=== PATIENT | female | born 1950 | race Caucasian/White ===

== ENCOUNTER 2016-10-27 01:55 | Emergency (ER) | payer MEDICARE, BC ==
[2016-10-27] MEDS ORDERED: SODIUM CHLORIDE 0.9% 1,000 ML IV ONE (02:19)
--- NOTE | 2016-10-27 02:46 | ED ---
General Adult HPI - General Chief complaint: Abdominal Pain Stated complaint: flank pain Time Seen by Provider: 10/27/16 02:03 Source: patient, RN notes reviewed Mode of arrival: EMS Limitations: no limitations - History of Present Illness Initial comments: Patient is a 66-year-old female presents to the emergency room for evaluation of abdominal and flank pain. Patient states she woke up in the middle night with extreme left sided abdominal pain radiating to her flank area. Patient states never had pain at this before. Patient states she was told she had a left kidney stone a few months ago by an ultrasound. Patient states it never caused her any issues. Patient denies pain or burning during urination, trouble urinating or blood in urine. Patient states she is very nauseous while having the pain but denied any vomiting. Patient states when EMS picked her up , they gave her a pain medication which has significantly improved her symptoms. Patient states she is now having 3 out of 10 pain. Patient states the pain is not worse with any movement. Patient denies chest pain or shortness of breath. Patient denies any current nausea or vomiting. Patient denies headache or dizziness. Patient states she has a history of hysterectomy and cholecystectomy. Patient denies constipation or diarrhea. Patient denies fevers, chills. - Related Data Home Medications Medication Instructions Recorded Confirmed Gabapentin [Neurontin] 100 mg PO BID 06/08/15 10/27/16 Lisinopril [Zestril] 5 mg PO DAILY 06/08/15 10/27/16 Levothyroxine Sodium [Synthroid] 50 mcg PO DAILY 10/27/16 10/27/16 Thyroid,Pork [[place] Thyroid] 30 mg PO DAILY 10/27/16 10/27/16 Previous Rx's Medication Instructions Recorded HYDROcodone/APAP 5-325MG [[place] 1 tab PO Q6HR PRN #12 tab 10/27/16 5-325] Ondansetron Odt [Zofran Odt] 4 mg PO Q8HR PRN #12 tab 10/27/16 Tamsulosin HCl [Flomax] 0.4 mg PO DAILY #10 cap.er.24h 10/27/16 Allergies Allergy/AdvReac Type Severity Reaction Status Date / Time adhesive tape Allergy PEELS SKIN Verified 10/27/16 02:03 Penicillins Allergy Rash/Hives Verified 10/27/16 02:03 Review of Systems ROS Statement: Those systems with pertinent positive or pertinent negative responses have been documented in the HPI. ROS Other: All systems not noted in ROS Statement are negative. Past Medical History Past Medical History: Fibromyalgia, Hypertension Additional Past Medical History / Comment(s): chronic back pain History of Any Multi-Drug Resistant Organisms: None Reported Past Surgical History: Cholecystectomy, Hysterectomy Additional Past Surgical History / Comment(s): sinus surgery, bilateral knee Past Psychological History: Depression Smoking Status: Never smoker Past Alcohol Use History: None Reported Past Drug Use History: None Reported General Exam - General Exam Comments Initial Comments: Sitting in exam room, no acute distress. Limitations: no limitations General appearance: alert, in no apparent distress Head exam: Present: atraumatic Eye exam: Present: normal appearance ENT exam: Present: normal exam Neck exam: Present: normal inspection Respiratory exam: Present: normal lung sounds bilaterally. Absent: respiratory distress Cardiovascular Exam: Present: regular rate, normal rhythm, normal heart sounds Extremities exam: Present: normal inspection Back exam: Present: normal inspection Neurological exam: Present: alert, oriented X3, CN II-XII intact, normal gait Psychiatric exam: Present: normal affect, normal mood Skin exam: Present: warm, dry, intact, normal color. Absent: rash Course Vital Signs 10/27/16 01:59 Temperature 97.9 F Pulse Rate 84 Respiratory 18 Rate Blood Pressure 156/63 O2 Sat by Pulse 98 Oximetry Medical Decision Making - Medical Decision Making Patient is a 66-year-old female presents emergency room for evaluation of left- sided flank pain and abdominal pain. Patient resting comfortably on examination. Patient states the pain medication given to her at EMS significantly improved her symptoms. Patient declined any pain medications on arrival. Urinalysis significant for hematuria. Patient does state that she was diagnosed with a left kidney stone during ultrasound a few months ago. Patient most likely passing kidney stone. Advised patient to follow-up with urologist. Patient states she's feeling better. Will discharge patient home with pain medications and Zofran and advised to return for worsening symptoms. Patient states she understands everything that was discussed with her. Return parameters discussed. Case discussed with Dr. López. - Lab Data Result diagrams: 10/27/16 02:45 10/27/16 02:45 Lab Results 10/27/16 10/27/16 10/27/16 Range/Units 02:45 02:45 02:45 WBC 11.4 H (3.8-10.6) k/uL RBC 4.20 (3.80-5.40) m/uL Hgb 12.9 (11.4-16.0) gm/dL Hct 39.8 (34.0-46.0) % MCV 94.7 (80.0-100.0) fL MCH 30.6 (25.0-35.0) pg MCHC 32.4 (31.0-37.0) g/dL RDW 13.1 (11.5-15.5) % Plt Count 240 (150-450) k/uL Neutrophils % 82 % Lymphocytes % 13 % Monocytes % 3 % Eosinophils % 1 % Basophils % 1 % Neutrophils # 9.3 H (1.3-7.7) k/uL Lymphocytes # 1.4 (1.0-4.8) k/uL Monocytes # 0.4 (0-1.0) k/uL Eosinophils # 0.1 (0-0.7) k/uL Basophils # 0.1 (0-0.2) k/uL Sodium 140 (137-145) mmol/L Potassium 4.5 (3.5-5.1) mmol/L Chloride 107 (98-107) mmol/L Carbon Dioxide 22 (22-30) mmol/L Anion Gap 11 mmol/L BUN 20 H (7-17) mg/dL Creatinine 0.70 (0.52-1.04) mg/dL Est GFR (MDRD) Af Amer >60 (>60 ml/min/1.73 sqM) Est GFR (MDRD) Non-Af >60 (>60 ml/min/1.73 sqM) Glucose 107 H (74-99) mg/dL Calcium 9.3 (8.4-10.2) mg/dL Total Bilirubin 0.5 (0.2-1.3) mg/dL AST 47 H (14-36) U/L ALT 49 (9-52) U/L Alkaline Phosphatase 96 (38-126) U/L Total Protein 6.5 (6.3-8.2) g/dL Albumin 3.7 (3.5-5.0) g/dL Urine Color Yellow Urine Appearance Clear (Clear) Urine pH 7.0 (5.0-8.0) Ur Specific [place] 1.014 (1.001-1.035) Urine Protein Trace H (Negative) Urine Glucose (UA) Negative (Negative) Urine Ketones Negative (Negative) Urine Blood Moderate H (Negative) Urine Nitrite Negative (Negative) Urine Bilirubin Negative (Negative) Urine Urobilinogen <2.0 (<2.0) mg/dL Ur Leukocyte Esterase Trace H (Negative) Urine RBC 163 H (0-5) /hpf Urine WBC 5 (0-5) /hpf Ur Squamous Epith Cells 2 (0-4) /hpf Amorphous Sediment Rare H (None) /hpf Urine Bacteria Rare H (None) /hpf Urine Mucus Rare H (None) /hpf - Radiology Data Radiology results: report reviewed, image reviewed Disposition Clinical Impression: Left flank pain, Hematuria Disposition: HOME SELF-CARE Condition: Good Instructions: Kidney Stones (ED), How to Strain Your Urine (ED) Additional Instructions: Drink plenty of water. Take Zofran as needed for nausea. Take Flomax daily. Take ibuprofen as needed for pain. Take [place] as needed for severe pain. Please follow-up with urologist for reevaluation. If any new symptom arises or symptoms worsen, return to ER as soon as possible. Prescriptions: HYDROcodone/APAP 5-325MG [[place] 5-325] 1 tab PO Q6HR PRN #12 tab PRN Reason: Pain Ondansetron Odt [Zofran Odt] 4 mg PO Q8HR PRN #12 tab PRN Reason: Nausea Tamsulosin HCl [Flomax] 0.4 mg PO DAILY #10 cap.er.24h Referrals: Ariadna Alexandra DO [Primary Care Provider] - 1-2 days Jesus Smith MD [STAFF PHYSICIAN] - 1-2 days Time of Disposition: 04:52
--- NOTE | 2016-10-27 03:38 | XR ---
PROCEDURE: FILM KUB HISTORY: 66-year-old female with abdominal pain. COMPARISON: None TECHNIQUE: Frontal view of the abdomen was obtained. FINDINGS: Lung bases demonstrate right basilar atelectasis. Postoperative clips overlie the right upper quadrant, likely due to cholecystectomy. No evidence of free air under the diaphragm. Nonobstructive bowel gas pattern. Presumed Boyd catheter overlies the pelvis. Levoconvex curvature in the lumbar spine. IMPRESSION: No evidence of free air under the diaphragm. Nonobstructive bowel gas pattern.
[2016-10-27] MEDS ORDERED: HYDROmorphone 1 MG/ML 1 ML SYRINGE IVP STA (03:47)
[2016-10-27 04:29] LABS: Basophils # (A) 0.1 k/uL (0-0.2); Basophils % (A) 1 %; CH 30.3; CHCM 32.1; Eosinophils # (A) 0.1 k/uL (0-0.7); Eosinophils % (A) 1 %; HCT 39.8 % (34.0-46.0); HDW 2.15; HGB 12.9 gm/dL (11.4-16.0); Luc # (Auto) 0.09; Luc % (Auto) 1; Lymphocytes # (A) 1.4 k/uL (1.0-4.8); Lymphocytes % (A) 13 %; MCH 30.6 pg (25.0-35.0); MCHC 32.4 g/dL (31.0-37.0); MCV 94.7 fL (80.0-100.0); Mean Platelet Volume 8.1; Monocytes # (A) 0.4 k/uL (0-1.0); Monocytes % (A) 3 %; Neutrophils # (A) 9.3 k/uL (1.3-7.7); Neutrophils % (A) 82 %; RDW 13.1 % (11.5-15.5); WBC 11.4 k/uL (3.8-10.6); WBC (Perox) 11.63
[2016-10-27 04:36] LABS: Amorphous Sediment,Urine Rare /hpf; Appearance,Urine Clear (Clear); Bacteria,Urine Rare /hpf; Bilirubin,Urine Negative (Negative); Glucose,Urine (UA) Negative (Negative); Ketones,Urine Negative (Negative); Leukocyte Esterase,Urine Trace (Negative); Mucus,Urine Rare /hpf; Nitrite,Urine Negative (Negative); Particle Count 2668; Protein,Urine Trace (Negative); RBC,Urine 163 /hpf (0-5); Specific Gravity,Urine 1.014 (1.001-1.035); Squamous Epithelial Cell,Urine 2 /hpf (0-4); UA Billing (MACRO vs. MICRO) MICRO; Urobilinogen,Urine <2.0 mg/dL (<2.0); WBC,Urine 5 /hpf (0-5)
[2016-10-27 04:40] LABS: ALT 49 U/L (9-52); AST 47 U/L (14-36); Alkaline Phosphatase 96 U/L (38-126); Anion Gap 11 mmol/L; Blood Urea Nitrogen 20 mg/dL (7-17); Calcium 9.3 mg/dL (8.4-10.2); Carbon Dioxide 22 mmol/L (22-30); Chloride 107 mmol/L (98-107); Glucose 107 mg/dL (74-99); Non-African American GFR(MDRD) >60 (>60 ml/min/1.73 sqM); Potassium 4.5 mmol/L (3.5-5.1); Sodium 140 mmol/L (137-145); Total Bilirubin 0.5 mg/dL (0.2-1.3); Total Protein 6.5 g/dL (6.3-8.2)
[2016-10-27 05:26] VITALS: BP 127/60; PULSE 64; RESP 16; TEMP 97.4
== END 2016-10-27 05:26 | disposition home or self-care (01) ==
LOC: EC 01:55
DX: R10.9 Unspecified abdominal pain (principal); R31.9 Hematuria, unspecified; R11.0 Nausea; M79.7 Fibromyalgia; I10 Essential (primary) hypertension; F32.9 Major depressive disorder, single episode, unspecified; Z90.49 Acquired absence of other specified parts of digestive tract; Z91.048 Other nonmedicinal substance allergy status; Z88.8 Allergy status to other drugs, medicaments and biological substances; Z79.899 Other long term (current) drug therapy
CPT/HCPCS: 99284; 96374; 96361; 36415; 80053; 85025; 81001; 74000; J1170

== ENCOUNTER → 2016-11-20 | Outpatient (CLI) | payer MEDICARE, BC ==
--- NOTE | 2016-11-20 08:15 | CT ---
EXAMINATION TYPE: CT abdomen pelvis wo con DATE OF EXAM: 11/20/2016 7:44 AM COMPARISON: 06/14/2013 HISTORY: N23 renal colic L/N20.[address] DLP: 1045 mGycm FINDINGS: LUNG BASES: Stable 8 mm pulmonary nodule right lung base as well as an adjacent area of the parenchym al scar. Focal eventration left hemidiaphragm. Small hiatal hernia is detected. LIVER/GB: The gallbladder is surgically absent. No space-occupying hepatic lesion. PANCREAS: No pancreatic mass identified. No inflammatory process seen. SPLEEN: No evidence for splenomegaly. No intrasplenic lesions seen. ADRENALS: No adrenal nodules identified. No evidence for thickening. KIDNEYS: Parapelvic renal cysts are noted bilaterally. There is a 3 mm left UPJ calculus resulting in mild left-sided hydronephrosis. Nonobstructing 4 mm calculus mid to lower pole right kidney as well as a 3 mm calculus lower pole right kidney. BOWEL: Appendix has a normal appearance. No evidence of bowel obstruction. No inflammatory process. Lymph nodes: No evidence for adenopathy greater than 1 cm. Abdominal aorta: Atheromatous changes seen. No evidence for aneurysm. Genital organs: Hysterectomy changes identified. Other: No significant abnormality. IMPRESSION: 1. 3 MM LEFT UPJ CALCULUS RESULTING IN MILD HYDRONEPHROSIS. 2. PARAPELVIC RENAL CYSTS NOTED BILATERALLY. 3. NONOBSTRUCTING RIGHT-SIDED NEPHROLITHIASIS. 4. STABLE RIGHT LOWER LOBE PULMONARY NODULE
== END | disposition home or self-care (01) ==
LOC: RADCTMAIN 07:29
PROVIDERS: ATTEND Urology
DX: N13.2 Hydronephrosis with renal and ureteral calculous obstruction (principal); N28.1 Cyst of kidney, acquired; Z88.0 Allergy status to penicillin
CPT/HCPCS: 74176

== ENCOUNTER 2016-12-09 15:06 | Emergency (ER) | payer MEDICARE, BC ==
[2016-12-09] MEDS ORDERED: ONDANSETRON 4 MG/2 ML VIAL IVP STA (15:24)
[2016-12-09] MEDS ORDERED: SODIUM CHLORIDE 0.9% 500 ML IV STA (15:24)
[2016-12-09] MEDS ORDERED: SODIUM CHLORIDE 0.9% 1,000 ML IV STA (15:24)
[2016-12-09] MEDS ORDERED: KETOROLAC 30 MG/ML 1 ML VIAL IVP STA (15:24)
[2016-12-09] MEDS ORDERED: HYDROmorphone 1 MG/ML 1 ML SYRINGE IVP STA (15:24)
--- NOTE | 2016-12-09 15:29 | ED ---
General Adult HPI - General Chief complaint: Back Pain/Injury Stated complaint: flank pain/poss kidney stones Time Seen by Provider: 12/09/16 15:19 Source: patient Mode of arrival: wheelchair Limitations: no limitations - History of Present Illness Initial comments: This 66-year-old white female presents with a complaint of some left flank and abdominal pain. She states that it came on suddenly earlier today and it was severe in nature. She denies any nausea or vomiting. She tried [place] from home without any relief. She states that she has had kidney stones in the past and this feels very similar. She apparently had one in the last couple of months. She had apparently passed it. She had a appointment with the urologist today but canceled that as she has not had pain for the past 2 weeks and thought that she passed this stone. She denies any frequency urgency dysuria or hematuria. She states that she's had a hard time urinating the last couple of hours. She denies any fevers or chills. No other complaints or modifying factors. - Related Data Home Medications Medication Instructions Recorded Confirmed Gabapentin [Neurontin] 100 mg PO BID 06/08/15 12/09/16 Lisinopril [Zestril] 5 mg PO HS 06/08/15 12/09/16 Levothyroxine Sodium [Synthroid] 50 mcg PO DAILY 10/27/16 12/09/16 Thyroid,Pork [[place] Thyroid] 30 mg PO DAILY 10/27/16 12/09/16 Previous Rx's Medication Instructions Recorded HYDROcodone/APAP 5-325MG [[place] 1 tab PO Q6HR PRN #12 tab 10/27/16 5-325] Ondansetron Odt [Zofran Odt] 4 mg PO Q8HR PRN #12 tab 10/27/16 Tamsulosin HCl [Flomax] 0.4 mg PO DAILY #10 cap.er.24h 10/27/16 Hydrocodone/Acetaminophen [[place] 1 - 2 each PO Q4HR PRN #20 tab 12/09/16 5-325] Allergies Allergy/AdvReac Type Severity Reaction Status Date / Time adhesive tape Allergy PEELS SKIN Verified 12/09/16 15:10 Penicillins Allergy Rash/Hives Verified 12/09/16 15:10 Review of Systems ROS Statement: Those systems with pertinent positive or pertinent negative responses have been documented in the HPI. ROS Other: All systems not noted in ROS Statement are negative. Past Medical History Past Medical History: Fibromyalgia, Hypertension Additional Past Medical History / Comment(s): kidney stones, chronic back pain History of Any Multi-Drug Resistant Organisms: None Reported Past Surgical History: Cholecystectomy, Hysterectomy Additional Past Surgical History / Comment(s): sinus surgery, bilateral knee Past Psychological History: Depression Smoking Status: Never smoker Past Alcohol Use History: None Reported Past Drug Use History: None Reported General Exam - General Exam Comments Initial Comments: GENERAL: The patient is well nourished and well hydrated. VITAL SIGNS: Heart rate, blood pressure, respiratory rate reviewed as recorded in nurse's notes. EYES: Pupils are round and reactive. Extraocular movements are intact. No conjunctival / lid redness or swelling. ENT: No external evidence of injury, swelling, or ecchymosis. Airway is patent. Throat is clear. NECK: Nontender. No swelling or evidence of injury. No subcutaneous emphysema. Trachea is midline. No thyroid mass. HEART: Regular rate and rhythm. Good peripheral pulses. LUNGS/CHEST: Breath sounds clear and equal bilaterally. No rales, rhonchi, or wheezes. No ecchymosis, subcutaneous emphysema, or tenderness. ABDOMEN: There is some tenderness present in the left upper quadrant of the abdomen as well as the left flank. No palpable masses or organomegaly. No peritoneal signs. No abdominal wall swelling or ecchymosis. EXTREMITIES: No extremity tenderness. Normal muscle tone and function. No thoracolumbar tenderness. NEUROLOGIC: Sensation is grossly intact. Cranial nerve exam reveals face is symmetrical, tongue is midline, speech is clear. SKIN: No abrasions or ecchymosis is noted. No induration or masses noted. PSYCHIATRIC: Alert and oriented. Appropriate behavior and judgment. Limitations: no limitations Course Vital Signs 12/09/16 15:07 Temperature 97.0 F L Pulse Rate 65 Respiratory 20 Rate Blood Pressure 132/64 O2 Sat by Pulse 99 Oximetry Medical Decision Making - Medical Decision Making The patient was seen and examined. All diagnostics were reviewed. An IV is started and she receives Dilaudid 1 mg IV as well as Toradol and Zofran intravenously. She received fluid hydration. She is feeling remarkably improved on recheck. The patient had a computed tomography scan of the abdomen and pelvis and this does show evidence of a 0.4 cm distal left ureteral stone with associated hydronephrosis. There may be some right hydronephrosis but no evidence of stone. Patient is asymptomatic for any pain on the right side. There is evidence of some renal stones in the right kidney which are nonobstructing. There is a stable lung nodule noted. Laboratories reviewed and there is mild leukocytosis. The urine shows some hematuria but no evidence of infection. Overall, it is felt as though she is stable for discharge and further outpatient treatment. She is only been taking one of the [place] 5/325 pills at a time. It is felt as though she can double up on this. Nausea does not appear to be a component of her symptomatology. She has followed up with Dr. Watts from urology in the past and it is strongly felt as though she should follow-up with him once again. She understands and leaves in no identifiable distress. - Lab Data Result diagrams: 12/09/16 15:42 12/09/16 15:42 Lab Results 12/09/16 12/09/16 12/09/16 Range/Units 15:42 15:42 15:42 WBC 13.7 H (3.8-10.6) k/uL RBC 4.57 (3.80-5.40) m/uL Hgb 13.8 (11.4-16.0) gm/dL Hct 42.6 (34.0-46.0) % MCV 93.3 (80.0-100.0) fL MCH 30.3 (25.0-35.0) pg MCHC 32.4 (31.0-37.0) g/dL RDW 12.9 (11.5-15.5) % Plt Count 295 (150-450) k/uL Neutrophils % 76 % Lymphocytes % 16 % Monocytes % 5 % Eosinophils % 1 % Basophils % 1 % Neutrophils # 10.4 H (1.3-7.7) k/uL Lymphocytes # 2.2 (1.0-4.8) k/uL Monocytes # 0.7 (0-1.0) k/uL Eosinophils # 0.1 (0-0.7) k/uL Basophils # 0.1 (0-0.2) k/uL Sodium 142 (137-145) mmol/L Potassium 4.5 (3.5-5.1) mmol/L Chloride 109 H (98-107) mmol/L Carbon Dioxide 20 L (22-30) mmol/L Anion Gap 13 mmol/L BUN 20 H (7-17) mg/dL Creatinine 0.89 (0.52-1.04) mg/dL Est GFR (MDRD) Af Amer >60 (>60 ml/min/1.73 sqM) Est GFR (MDRD) Non-Af >60 (>60 ml/min/1.73 sqM) Glucose 106 H (74-99) mg/dL Calcium 10.0 (8.4-10.2) mg/dL Urine Color Yellow Urine Appearance Clear (Clear) Urine pH 6.0 (5.0-8.0) Ur Specific [place] 1.012 (1.001-1.035) Urine Protein Negative (Negative) Urine Glucose (UA) Negative (Negative) Urine Ketones Negative (Negative) Urine Blood Small H (Negative) Urine Nitrite Negative (Negative) Urine Bilirubin Negative (Negative) Urine Urobilinogen <2.0 (<2.0) mg/dL Ur Leukocyte Esterase Trace H (Negative) Urine RBC 23 H (0-5) /hpf Urine WBC 2 (0-5) /hpf Ur Squamous Epith Cells 1 (0-4) /hpf Urine Bacteria Rare H (None) /hpf Hyaline Casts 3 H (0-2) /lpf Urine Mucus Rare H (None) /hpf Disposition Clinical Impression: Left ureteral calculus, Kidney stone, Flank pain, Abdominal pain, Leukocytosis , Hematuria, Hydronephrosis Disposition: HOME SELF-CARE Condition: Good Instructions: Kidney Stones (ED) Prescriptions: Hydrocodone/Acetaminophen [[place] 5-325] 1 - 2 each PO Q4HR PRN #20 tab PRN Reason: Pain Referrals: Ariadna Alexandra DO [Primary Care Provider] - 1-2 days Jose Armando Watts MD [STAFF PHYSICIAN] - 12/12/16 Time of Disposition: 16:56
[2016-12-09 16:10] LABS: Basophils # (A) 0.1 k/uL (0-0.2); Basophils % (A) 1 %; CH 30.1; CHCM 32.4; Eosinophils # (A) 0.1 k/uL (0-0.7); Eosinophils % (A) 1 %; HCT 42.6 % (34.0-46.0); HDW 2.21; HGB 13.8 gm/dL (11.4-16.0); Luc # (Auto) 0.19; Luc % (Auto) 1; Lymphocytes # (A) 2.2 k/uL (1.0-4.8); Lymphocytes % (A) 16 %; MCH 30.3 pg (25.0-35.0); MCHC 32.4 g/dL (31.0-37.0); MCV 93.3 fL (80.0-100.0); Mean Platelet Volume 7.8; Monocytes # (A) 0.7 k/uL (0-1.0); Monocytes % (A) 5 %; Neutrophils # (A) 10.4 k/uL (1.3-7.7); Neutrophils % (A) 76 %; RBC 4.57 m/uL (3.80-5.40); RDW 12.9 % (11.5-15.5); WBC 13.7 k/uL (3.8-10.6); WBC (Perox) 13.18
[2016-12-09 16:13] LABS: Appearance,Urine Clear (Clear); Bacteria,Urine Rare /hpf; Bilirubin,Urine Negative (Negative); Glucose,Urine (UA) Negative (Negative); Ketones,Urine Negative (Negative); Leukocyte Esterase,Urine Trace (Negative); Mucus,Urine Rare /hpf; Nitrite,Urine Negative (Negative); Particle Count 5478; Protein,Urine Negative (Negative); RBC,Urine 23 /hpf (0-5); Specific Gravity,Urine 1.012 (1.001-1.035); Squamous Epithelial Cell,Urine 1 /hpf (0-4); UA Billing (MACRO vs. MICRO) MICRO; Urobilinogen,Urine <2.0 mg/dL (<2.0); WBC,Urine 2 /hpf (0-5)
[2016-12-09 16:18] LABS: Anion Gap 13 mmol/L; Blood Urea Nitrogen 20 mg/dL (7-17); Carbon Dioxide 20 mmol/L (22-30); Chloride 109 mmol/L (98-107); Glucose 106 mg/dL (74-99); Non-African American GFR(MDRD) >60 (>60 ml/min/1.73 sqM); Potassium 4.5 mmol/L (3.5-5.1); Sodium 142 mmol/L (137-145)
--- NOTE | 2016-12-09 16:38 | CT ---
EXAMINATION TYPE: CT abdomen pelvis wo con DATE OF EXAM: 12/09/2016 4:29 PM COMPARISON: 11/20/2016 INDICATION: Left side flank pain. Hx of kidney stones. DLP: 841.5 mGycm, Automated exposure control for dose reduction was used. CONTRAST: None Study performed without Oral Contrast TECHNIQUE: Axial images were obtained from above the diaphragm to the pubic rami in the axial plane a t 5 mm thick sections. Reconstructed images are reviewed on the computer in the coronal plane. FINDINGS: Limited CT sections are obtained the lung bases. There is streak opacities in bilateral lung bases c ompatible streak atelectasis. 0.7 cm nodules in the posterior lateral right lung base. This was prese nt previously and stable.. CT ABDOMEN: Liver: Normal Spleen: Normal Pancreas: Normal Adrenal glands: The adrenal glands are normal. Gallbladder: Normal Kidneys: No masses are evident. There is a moderate left hydronephrosis and hydroureter. A mild right hydronephrosis is present. No hydroureter is present on the right. There is a 0.4 cm calcification w ithin the distal left ureter. Series 3 image 123. This is above the ureterovesical junction. There is an inferior pole right renal stone without obstruction measuring 3 mm. A 0.6 cm calcification is in the posterior mid left kidney. No cysts are present. Aorta: Vascular calcification is within the aorta. Inferior vena cava: Normal. CT PELVIS: Loops of bowel within the abdomen and pelvis are normal. Appendix: Not identified Urinary bladder: Normal. Genitourinary structures: Uterus and ovaries are not identified. Osseous structures: No suspicious lytic or sclerotic lesions. IMPRESSIONS: 1. 0.4 cm distal left ureteral stone with moderate left hydronephrosis and hydroureter. 2. Nonobstructing right renal stones. 3. Mild right hydronephrosis may be present although an obstructing stone is not identified. 4. Stable posterior lateral right lung nodule. This has been present since 2012 and is stable.
[2016-12-09 17:09] VITALS: BP 130/60; PULSE 73; RESP 18; TEMP 98.3
== END 2016-12-09 17:09 | disposition home or self-care (01) ==
LOC: EC 15:06
DX: N13.2 Hydronephrosis with renal and ureteral calculous obstruction (principal); D72.829 Elevated white blood cell count, unspecified; R91.1 Solitary pulmonary nodule; I10 Essential (primary) hypertension; M79.7 Fibromyalgia; Z79.899 Other long term (current) drug therapy; Z88.0 Allergy status to penicillin; Z91.048 Other nonmedicinal substance allergy status; Z90.49 Acquired absence of other specified parts of digestive tract
CPT/HCPCS: 36415; 80048; 85025; 81001; 74176; 99284; 96374; 96375 ×2; 96361; J2405; J1885; J1170

== ENCOUNTER → 2018-02-25 | Outpatient (CLI) | payer MEDICARE, BC ==
--- NOTE | 2018-02-25 22:35 | MR ---
EXAMINATION TYPE: MR knee RT wo con DATE OF EXAM: 02/25/2018 COMPARISON: NONE HISTORY: Right knee pain for 6 to 8 months after exercising injury per patient. TECHNIQUE: Multiplanar, multisequence images of the knee is performed without IV contrast. FINDINGS: MEDIAL MENISCUS: Anterior horn is intact without tear. Faint horizontal increased signal posterior ho rn appears to extend to the inferior articular surface sagittal image 22. LATERAL MENISCUS: Anterior and posterior horns are intact without tear. CRUCIATE LIGAMENTS: The anterior and posterior cruciate ligaments are intact and unremarkable. COLLATERAL LIGAMENTS: The medial collateral ligament and lateral collateral ligament complex are inta ct and unremarkable. EXTENSOR MECHANISM: Visualized quadriceps and patellar tendons are intact. EFFUSION: No significant suprapatellar joint effusion. POPLITEAL CYST: No popliteal/pollard cyst. TRICOMPARTMENT SPACES: There is fairly moderate to advanced patellofemoral joint space loss without s ignificant spurring. There is mild to moderate joint space loss medial and lateral tibiofemoral raysa rtments with mild spurring. CARTILAGE: There is full-thickness chondromalacia patella along the posterior patellar pole particula rly superior aspect. Some thinning of articular cartilage medial tibiofemoral compartment is noted. BONE MARROW SIGNAL: There is heterogeneous increased T2 signal involving the posterior medial aspect of the lateral tibial plateau including tibial meta-epiphysis over roughly 2 x 3 x 3 cm area. Some re active increased T2 signal also seen in the superior patellar pole at areas of full-thickness chondro malacia patella. OTHER: No additional significant abnormality is appreciated. IMPRESSION: 1. Fairly advanced degenerative change patellofemoral compartment with full-thickness chondromalacia patella and reactive osseous changes posterior patellar pole noted. 2. Fairly moderate degenerative changes medial tibiofemoral compartment as detailed above. 3. Fairly large area of osseous contusion and/or pulmonary edema centered in the posterior medial asp ect of the lateral tibial meta-epiphysis including tibial plateau. 4. Suspected full thickness tear posterior horn of medial meniscus.
== END | disposition home or self-care (01) ==
LOC: RADMRIMAIN 20:38
PROVIDERS: ATTEND Orthopaedic Surgery
DX: M17.11 Unilateral primary osteoarthritis, right knee (principal); M22.41 Chondromalacia patellae, right knee

== ENCOUNTER 2018-08-19 06:58 | Day surgery (SDC) | payer MEDICARE ==
[2018-08-14 15:59] VITALS: BMI 26.5
[~2018-08-19 06:58] MED LIST: LACTATED RINGERS 1,000 ML IV SCH
[2018-08-19 07:16] VITALS: RESP 16; TEMP 98.6
[2018-08-19] MEDS ORDERED: LIDOCAINE 1% INJ 10MG/ML (20 ML MDV) ONE (07:41)
[2018-08-19] MEDS ORDERED: GLYCOPYRROLATE 0.2 MG/ML 2 ML VIAL ONE (07:41)
[2018-08-19] MEDS ORDERED: PROPOFOL 10 MG/ML 20 ML VIAL IV ONE (07:41)
--- NOTE | 2018-08-19 08:05 | P.GSHP ---
History of Present Illness H&P Date: 08/19/18 Chief Complaint: Screening colonoscopy This is a 68-year-old female who presents today for screening colonoscopy. Patient denies any significant GI complaints. Past Medical History Past Medical History: Cancer, Hypertension Additional Past Medical History / Comment(s): hx of polyps, hx kidney stones, chronic back pain, prev hx of HTN and hypothyroid, melanoma arm History of Any Multi-Drug Resistant Organisms: None Reported Past Surgical History: Cholecystectomy, Hysterectomy, Orthopedic Surgery Additional Past Surgical History / Comment(s): sinus surgery, bilateral knee arthroscopy, lithotripsy Past Anesthesia/Blood Transfusion Reactions: No Reported Reaction Smoking Status: Never smoker - Past Family History Father Family Medical History: Cancer Additional Family Medical History / Comment(s): colon,lung,prostate Medications and Allergies Home Medications Medication Instructions Recorded Confirmed Type Hydrochlorothiazide 12.5 mg PO QAM 08/14/18 08/19/18 History Allergies Allergy/AdvReac Type Severity Reaction Status Date / Time adhesive tape Allergy PEELS SKIN Verified 08/19/18 07:13 Penicillins Allergy Rash/Hives Verified 08/19/18 07:13 Surgical - Exam Vital Signs Temp Pulse Resp BP Pulse Ox 98.6 F 104 H 16 169/80 97 08/19/18 07:14 08/19/18 07:14 08/19/18 07:14 08/19/18 07:14 08/19/18 07:14 - General well developed, no distress - Eyes PERRL - ENT normal pinna - Neck no masses - Respiratory normal expansion - Abdomen Abdomen: soft, non tender Assessment and Plan Assessment: We'll perform screening colonoscopy
--- NOTE | 2018-08-19 08:20 | P.OP ---
Date of Procedure: 08/19/18 Preoperative Diagnosis: Screening colonoscopy Postoperative Diagnosis: Normal colon Procedure(s) Performed: Colonoscopy Anesthesia: MAC Surgeon: Richard Gonzales Pathology: none sent Condition: stable Disposition: PACU Description of Procedure: PROCEDURE: The patient was placed on the endoscopy table in the lateral position. Digital rectal examination was performed which revealed no abnormalities. es. Flexible colonoscope was then placed in the patient's anus and passed throughout the entire colon. The ileocecal valve was visualized. The cecum, ascending, transverse, descending and sigmoid colon were normal. The rectum was normal as well. There were no masses, polyps or diverticula noted in the entire colon. SUMMARY OF FINDINGS: Normal colonoscopy.
[2018-08-19 09:08] VITALS: BP 98/54; PULSE 68
== END 2018-08-19 09:26 | disposition home or self-care (01) ==
LOC: ORWHC2ENDO 06:58
PROVIDERS: ATTEND Surgery
DX: Z12.11 Encounter for screening for malignant neoplasm of colon (principal); E03.9 Hypothyroidism, unspecified; I10 Essential (primary) hypertension; Z85.820 Personal history of malignant melanoma of skin; Z87.442 Personal history of urinary calculi; Z88.0 Allergy status to penicillin; Z90.49 Acquired absence of other specified parts of digestive tract
CPT/HCPCS: J2001; J2704; G0121; 45378

== ENCOUNTER → 2018-11-13 | Outpatient (CLI) | payer MEDICARE ==
--- NOTE | 2018-11-13 16:14 | US ---
EXAMINATION TYPE: US abdomen comp/pelvis limited DATE OF EXAM: 11/13/2018 COMPARISON: CT 2017 CLINICAL HISTORY: R10.32 L lower R10.9 abd pain. Intermittent left flank tenderness x 2 years, gotten worse in last couple months, history of kidney stones and cholecystectomy EXAM MEASUREMENTS: Liver Length: 14.0 cm Gallbladder Wall: surgically absent CBD: 0.6 cm Spleen: 8.8 cm Right Kidney: 10.0 x 4.7 x 5.5 cm Left Kidney: 10.9 x 5.2 x 5.0 cm Pancreas: visualized portions wnl, limited by overlying bowel gas Liver: wnl Gallbladder: surgically absent CBD: wnl Spleen: visualized portions wnl, partially obscured by overlying bowel gas Right Kidney: 2.0 x 1.3 x 2.4cm cystic area mid pole Left Kidney: mild hydronephrosis Upper IVC: wnl Abd Aorta: wnl Bladder: not fully distended, appears wnl as seen Bilateral Jets Seen left jet seen, right jet not seen IMPRESSION: 1. Mild left hydronephrosis
== END | disposition home or self-care (01) ==
LOC: RADUSWWP 07:38
PROVIDERS: ATTEND Family Medicine
DX: N13.30 Unspecified hydronephrosis (principal)
CPT/HCPCS: 76700; 76857

== ENCOUNTER 2019-09-26 14:01 | Emergency (ER) | payer OTHER, MEDICARE ==
[2019-09-26 14:15] VITALS: BP 151/72; PULSE 86; RESP 16; TEMP 98.1
[2019-09-26 14:46] LABS: Basophils # (A) 0.1 k/uL (0-0.2); Basophils % (A) 1 %; Eosinophils # (A) 0.1 k/uL (0-0.7); Eosinophils % (A) 2 %; HCT 42.4 % (34.0-46.0); HGB 13.8 gm/dL (11.4-16.0); Lymphocytes # (A) 2.4 k/uL (1.0-4.8); Lymphocytes % (A) 27 %; MCH 30.4 pg (25.0-35.0); MCHC 32.6 g/dL (31.0-37.0); MCV 93.4 fL (80.0-100.0); Mean Platelet Volume 7.8; Monocytes # (A) 0.4 k/uL (0-1.0); Monocytes % (A) 5 %; Neutrophils # (A) 5.7 k/uL (1.3-7.7); Neutrophils % (A) 64 %; Platelet Count 261 k/uL (150-450); RBC 4.54 m/uL (3.80-5.40); RDW 13.1 % (11.5-15.5); WBC 8.8 k/uL (3.8-10.6)
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
[2019-09-26 14:54] LABS: ALT 25 U/L (4-34); AST 34 U/L (14-36); African American GFR (CKD) >90 (>60 ml/min/1.73 sqM); Albumin 4.2 g/dL (3.5-5.0); Alkaline Phosphatase 106 U/L (38-126); Anion Gap 8 mmol/L; Blood Urea Nitrogen 17 mg/dL (7-17); Calcium 9.7 mg/dL (8.4-10.2); Carbon Dioxide 26 mmol/L (22-30); Chloride 105 mmol/L (98-107); Glucose 92 mg/dL (74-99); Non-African American GFR(CKD) >90 (>60 ml/min/1.73 sqM); Sodium 139 mmol/L (137-145); Total Bilirubin 0.4 mg/dL (0.2-1.3); Total Protein 7.3 g/dL (6.3-8.2)
--- NOTE | 2019-09-26 15:06 | XR ---
EXAMINATION TYPE: XR knee complete LT DATE OF EXAM: 09/26/2019 COMPARISON: NONE HISTORY: Knee pain TECHNIQUE: 3 views FINDINGS: There is no fracture nor dislocation. Joint spaces are fairly normal. There is no sign of j oint effusion. IMPRESSION: Negative left knee exam. No fracture seen.
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
== END 2019-09-26 16:03 ==
LOC: EC 14:01
DX: S20.212A Contusion of left front wall of thorax, initial encounter (principal); S80.02XA Contusion of left knee, initial encounter; S30.1XXA Contusion of abdominal wall, initial encounter; S09.90XA Unspecified injury of head, initial encounter; I10 Essential (primary) hypertension; Z79.899 Other long term (current) drug therapy; Z88.0 Allergy status to penicillin; Z91.048 Other nonmedicinal substance allergy status; Z85.820 Personal history of malignant melanoma of skin; Z87.442 Personal history of urinary calculi; Z90.49 Acquired absence of other specified parts of digestive tract; Z98.890 Other specified postprocedural states; V43.62XA Car passenger injured in collision with other type car in traffic accident, initial encounter; Y92.410 Unspecified street and highway as the place of occurrence of the external cause
CPT/HCPCS: 36415; 80053; 85025; 73562; 71260; 74177; 99285; Q9967

== ENCOUNTER 2021-09-16 19:08 | Observation (INO) | payer MEDICARE ==
[2021-09-16] MEDS ORDERED: ASPIRIN 81 MG PO STA (19:27)
[2021-09-16] MEDS ORDERED: FAMOTIDINE 20 MG/2 ML VIAL IV STA (19:49)
[2021-09-16] MEDS ORDERED: ONDANSETRON 4 MG/2 ML VIAL IVP STA (19:49)
[2021-09-16 20:11] LABS: Basophils # (A) 0.1 k/uL (0-0.2); Basophils % (A) 1 %; Eosinophils # (A) 0.1 k/uL (0-0.7); Eosinophils % (A) 1 %; HCT 43.7 % (34.0-46.0); HGB 14.5 gm/dL (11.4-16.0); Lymphocytes # (A) 3.3 k/uL (1.0-4.8); Lymphocytes % (A) 39 %; MCH 32.1 pg (25.0-35.0); MCHC 33.1 g/dL (31.0-37.0); MCV 97.2 fL (80.0-100.0); Mean Platelet Volume 8.2; Monocytes # (A) 0.6 k/uL (0-1.0); Monocytes % (A) 7 %; Neutrophils # (A) 4.2 k/uL (1.3-7.7); Neutrophils % (A) 49 %; Platelet Count 247 k/uL (150-450); WBC 8.5 k/uL (3.8-10.6)
[2021-09-16 20:13] LABS: ALT 29 U/L (4-34); AST 34 U/L (14-36); African American GFR (CKD) >90 (>60 ml/min/1.73 sqM); Albumin 4.4 g/dL (3.5-5.0); Alkaline Phosphatase 110 U/L (38-126); Anion Gap 7 mmol/L; Blood Urea Nitrogen 20 mg/dL (7-17); Calcium 9.6 mg/dL (8.4-10.2); Carbon Dioxide 26 mmol/L (22-30); Chloride 106 mmol/L (98-107); Glucose 116 mg/dL (74-99); Magnesium 2.1 mg/dL (1.6-2.3); Non-African American GFR(CKD) 80 (>60 ml/min/1.73 sqM); Potassium 3.9 mmol/L (3.5-5.1); Sodium 139 mmol/L (137-145); Total Bilirubin 0.4 mg/dL (0.2-1.3); Total Protein 7.5 g/dL (6.3-8.2)
[2021-09-16 20:26] LABS: INR 0.9 (<1.2); Partial Thromboplastin Time 23.1 sec (22.0-30.0); Prothrombin Time 9.9 sec (9.0-12.0)
--- NOTE | 2021-09-16 20:37 | XR ---
EXAMINATION TYPE: XR chest 2V DATE OF EXAM: 09/16/2021 COMPARISON: NONE HISTORY: Chest pain TECHNIQUE: 2 views FINDINGS: There is no heart failure nor confluent pneumonic infiltrate. Costophrenic angles are clear . There are no hilar masses. Thoracic aorta is atheromatous. There are chest leads. IMPRESSION: No active cardiopulmonary disease. No change.
[2021-09-16] MEDS ORDERED: MORPHINE SULFATE 4 MG/ML SYRINGE IV PRN (21:37)
[2021-09-16] MEDS ORDERED: KETOROLAC 15 MG/ML 1 ML VIAL IVP PRN (21:37)
[2021-09-16] MEDS ORDERED: NALOXONE 0.4 MG/ML 1 ML VIAL IV PRN (21:37)
[2021-09-16] MEDS ORDERED: ONDANSETRON 4 MG/2 ML VIAL IVP PRN (21:37)
--- NOTE | 2021-09-16 22:03 | ED ---
General Adult HPI - General Chief complaint: Chest Pain Stated complaint: Chest pain Time Seen by Provider: 09/16/21 19:21 Source: patient, RN notes reviewed, old records reviewed Mode of arrival: wheelchair - History of Present Illness Initial comments: Patient is a 71-year-old female who presents emergency department over concern for chest pain. Patient does have a history of hypertension. She describes a chest pressure sensation with burning substernal chest pain has been on again off again for the last 2 days. She became concerned, she is experiencing a continuous chest pressure sensation for approximately one hour straight prior to arrival. It is subsiding on its own now. She states earlier was a discomfort that was like a 5 out of 10. Is currently a 1 or less out of 10. States that she did shortness of breath when the pressure was bad. States it was left of her sternum. Patient concerned and wanted to be evaluated. No history of blood clots. No lower extremity edema. Denies orthopnea or PND. Denies any fevers, chills, nausea, vomiting. His no other acute complaints at this time. Presents for chest pain evaluation. - Related Data Home Medications Medication Instructions Recorded Confirmed Ascorbic Acid [Vitamin C] 500 mg PO DAILY 09/16/21 09/16/21 Cholecalciferol [Vitamin D3 (25 25 mcg PO DAILY 09/16/21 09/16/21 Mcg = 1000 Iu)] L.acidoph,Paracasei, B.lactis 1 cap PO DAILY 09/16/21 09/16/21 [Probiotic] Metoprolol Succinate [Toprol XL] 25 mg PO DAILY 09/16/21 09/16/21 Multivitamins, Thera [Multivitamin 1 tab PO DAILY 09/16/21 09/16/21 (formulary)] [place]-3 Fatty Acids/Fish Oil [Fish 1 cap PO DAILY 09/16/21 09/16/21 Oil 1,000 mg Softgel] Allergies Allergy/AdvReac Type Severity Reaction Status Date / Time adhesive tape Allergy PEELS SKIN Verified 09/16/21 19:18 Penicillins Allergy Rash/Hives Verified 09/16/21 19:18 Review of Systems ROS Statement: Those systems with pertinent positive or pertinent negative responses have been documented in the HPI. Review of Systems: CONST: Denies fever EYES: Denies blurry vision ENT: Denies nasal congestion C/V: Endorses chest pressure RESP: Denies shortness of breath GI: Denies abdominal pain : Denies dysuria SKIN: Denies rash. MSK: Denies joint pain. NEURO: Denies headache ROS Other: All systems not noted in ROS Statement are negative. Past Medical History Past Medical History: Cancer, Hypertension Additional Past Medical History / Comment(s): hx of polyps, hx kidney stones, chronic back pain, prev hx of HTN and hypothyroid, melanoma arm, abnormal echo 09/11 History of Any Multi-Drug Resistant Organisms: None Reported Past Surgical History: Cholecystectomy, Hysterectomy, Orthopedic Surgery Additional Past Surgical History / Comment(s): sinus surgery, bilateral knee arthroscopy, lithotripsy Past Anesthesia/Blood Transfusion Reactions: No Reported Reaction Past Psychological History: No Psychological Hx Reported Smoking Status: Never smoker Past Alcohol Use History: Occasional Past Drug Use History: None Reported - Past Family History Father Family Medical History: Cancer Additional Family Medical History / Comment(s): colon,lung,prostate General Exam - General Exam Comments Initial Comments: General: Appears in no acute distress. HEAD: Normal with no signs of head trauma. EYES: PERRLA, EOMI, conjunctiva normal, no discharge. ENT: Hearing grossly intact, normal oropharynx. RESPIRATORY: Clear breath sounds bilaterally. No wheezes, rales, or rhonchi. C/V: Regular rate and rhythm. S1 and S2 auscultated, no edema, peripheral pulses 2+ and intact throughout ABD: Abd is soft, nontender, nondistended EXT: Normal range of motion, no obvious deformity SKIN: No rashes or lesions observed on exposed skin. NEURO: Alert and oriented 4. Course Vital Signs 09/16/21 09/16/21 19:16 23:00 Temperature 97.7 F Pulse Rate 83 69 Respiratory 18 18 Rate Blood Pressure 153/79 133/62 O2 Sat by Pulse 100 98 Oximetry Medical Decision Making - Medical Decision Making Based on the patient's presentation and physical exam, cardio pulmonary workup will be obtained over concern for possible cardiac cause for current symptoms. Due to the as reflux type symptoms, she'll also receive a GI cocktail. She was in agreement this plan. She received an aspirin, as well as IV Zofran, famotidine. EKG will be obtained. Chest x-ray will be obtained. EKG showed no signs of acute ischemia. Chest x-ray revealed no acute cardiop ulmonary process. Laboratory studies were remarkable for a negative troponin. Remainder of labs are unremarkable. On reevaluation, patient's chest pain is improved to approximately 0 out of 10. She states it comes and goes but has been absent for quite some time. I did discuss with her the results of laboratory studies. Due to the patient's heart score which is moderate at 4, however like to admit the hospital for cardiac observation. She was in agreement this plan. Echo was ordered. She'll be admitted to observation telemetry. Cardiology was consulted. Troponins will be trended.I spoke with TAMMY Burger of [facility] who accepted the patient. Patient was therefore admitted in stable condition. - Lab Data Result diagrams: 09/16/21 19:09/16/21 19: Lab Results 09/16/21 09/16/21 09/16/21 Range/Units 19:27 19: 19: WBC 8.5 (3.8-10.6) k/uL RBC 4.50 (3.80-5.40) m/uL Hgb 14.5 (11.4-16.0) gm/dL Hct 43.7 (34.0-46.0) % MCV 97.2 (80.0-100.0) fL MCH 32.1 (25.0-35.0) pg MCHC 33.1 (31.0-37.0) g/dL RDW 13.0 (11.5-15.5) % Plt Count 247 (150-450) k/uL MPV 8.2 Neutrophils % 49 % Lymphocytes % 39 % Monocytes % 7 % Eosinophils % 1 % Basophils % 1 % Neutrophils # 4.2 (1.3-7.7) k/uL Lymphocytes # 3.3 (1.0-4.8) k/uL Monocytes # 0.6 (0-1.0) k/uL Eosinophils # 0.1 (0-0.7) k/uL Basophils # 0.1 (0-0.2) k/uL PT 9.9 (9.0-12.0) sec INR 0.9 (<1.2) APTT 23.1 (22.0-30.0) sec D-Dimer 0.28 (<0.60) mg/L FEU Sodium 139 (137-145) mmol/L Potassium 3.9 (3.5-5.1) mmol/L Chloride 106 (98-107) mmol/L Carbon Dioxide 26 (22-30) mmol/L Anion Gap 7 mmol/L BUN 20 H (7-17) mg/dL Creatinine 0.76 (0.52-1.04) mg/dL Est GFR (CKD-EPI)AfAm >90 (>60 ml/min/1.73 sqM) Est GFR (CKD-EPI)NonAf 80 (>60 ml/min/1.73 sqM) Glucose 116 H (74-99) mg/dL Calcium 9.6 (8.4-10.2) mg/dL Magnesium 2.1 (1.6-2.3) mg/dL Total Bilirubin 0.4 (0.2-1.3) mg/dL AST 34 (14-36) U/L ALT 29 (4-34) U/L Alkaline Phosphatase 110 (38-126) U/L Troponin I (0.000-0.034) ng/mL Total Protein 7.5 (6.3-8.2) g/dL Albumin 4.4 (3.5-5.0) g/dL 09/16/21 Range/Units 19:27 WBC (3.8-10.6) k/uL RBC (3.80-5.40) m/uL Hgb (11.4-16.0) gm/dL Hct (34.0-46.0) % MCV (80.0-100.0) fL MCH (25.0-35.0) pg MCHC (31.0-37.0) g/dL RDW (11.5-15.5) % Plt Count (150-450) k/uL MPV Neutrophils % % Lymphocytes % % Monocytes % % Eosinophils % % Basophils % % Neutrophils # (1.3-7.7) k/uL Lymphocytes # (1.0-4.8) k/uL Monocytes # (0-1.0) k/uL Eosinophils # (0-0.7) k/uL Basophils # (0-0.2) k/uL PT (9.0-12.0) sec INR (<1.2) APTT (22.0-30.0) sec D-Dimer (<0.60) mg/L FEU Sodium (137-145) mmol/L Potassium (3.5-5.1) mmol/L Chloride (98-107) mmol/L Carbon Dioxide (22-30) mmol/L Anion Gap mmol/L BUN (7-17) mg/dL Creatinine (0.52-1.04) mg/dL Est GFR (CKD-EPI)AfAm (>60 ml/min/1.73 sqM) Est GFR (CKD-EPI)NonAf (>60 ml/min/1.73 sqM) Glucose (74-99) mg/dL Calcium (8.4-10.2) mg/dL Magnesium (1.6-2.3) mg/dL Total Bilirubin (0.2-1.3) mg/dL AST (14-36) U/L ALT (4-34) U/L Alkaline Phosphatase (38-126) U/L Troponin I <0.012 (0.000-0.034) ng/mL Total Protein (6.3-8.2) g/dL Albumin (3.5-5.0) g/dL - EKG Data -: EKG Interpreted by Me EKG Comments: 12-lead Electrocardiogram Interpretation Note EKG was reviewed and interpreted by myself. 12-lead ECG performed at 1933 is interpreted by me as revealing normal sinus rhythm at a rate of 84 beats per minute. [place] is normal. HI interval is 158 ms, QRS duration is 94 ms, QTc is 404 ms.. There were no ST or T wave abnormalities to suggest myocardial ischemia or injury. R wave progression across the precordium was satisfactory. By my interpretation this EKG is non-diagnostic for acute ischemia. Disposition Clinical Impression: Chest pain of unknown etiology Disposition: ADMITTED IP TO THIS HOSP Condition: Stable
[2021-09-17] MEDS: HEPARIN SODIUM,PORCINE/PF 5,000 UNIT/0.5 ML SYRINGE SQ SCH ×4 (02:07→23:16)
[2021-09-17 03:21] LABS: African American GFR (CKD) >90 (>60 ml/min/1.73 sqM); Anion Gap 7 mmol/L; Blood Urea Nitrogen 20 mg/dL (7-17); Calcium 8.8 mg/dL (8.4-10.2); Carbon Dioxide 22 mmol/L (22-30); Chloride 109 mmol/L (98-107); Glucose 95 mg/dL (74-99); Non-African American GFR(CKD) 89 (>60 ml/min/1.73 sqM); Potassium 3.9 mmol/L (3.5-5.1); Sodium 138 mmol/L (137-145)
[2021-09-17 03:23] LABS: Basophils # (A) 0.1 k/uL (0-0.2); Basophils % (A) 1 %; Eosinophils # (A) 0.1 k/uL (0-0.7); Eosinophils % (A) 2 %; Lymphocytes # (A) 2.4 k/uL (1.0-4.8); Lymphocytes % (A) 33 %; MCH 32.4 pg (25.0-35.0); MCHC 32.5 g/dL (31.0-37.0); MCV 99.8 fL (80.0-100.0); Mean Platelet Volume 8.4; Monocytes # (A) 0.5 k/uL (0-1.0); Monocytes % (A) 8 %; Neutrophils % (A) 55 %; Platelet Count 216 k/uL (150-450); RBC 4.01 m/uL (3.80-5.40); RDW 13.5 % (11.5-15.5); WBC 7.3 k/uL (3.8-10.6)
[2021-09-17] MEDS ORDERED: METOPROLOL SUCCINATE (ER) 25 MG TAB.ER.24H PO SCH (09:00)
[2021-09-17] MEDS ORDERED: NITROGLYCERIN SL TABS 0.4 MG TAB SUBLINGUAL PRN (10:15)
[2021-09-17] MEDS ORDERED: ALPRAZolam 0.5 MG TAB PO PRN (10:15)
[2021-09-17] MEDS ORDERED: ALPRAZolam 0.25 MG TAB PO PRN (10:15)
--- NOTE | 2021-09-17 11:00 | ECHOF ---
Referral Reason:chest pain of unknown etiology MEASUREMENTS -------- HEIGHT: 175.3 cm WEIGHT: 86.2 kg BP: IVSd: 0.9 cm (0.6 - 1.1) LVIDd: 4.6 cm (3.9 - 5.3) LVPWd: 1.0 cm (0.6 - 1.1) IVSs: 1.2 cm LVIDs: 3.9 cm LVPWs: 1.4 cm LAESV Index (A-L): 22.64 ml/m Ao Diam: 2.9 cm (2.0 - 3.7) AV Cusp: 1.4 cm (1.5 - 2.6) LA Diam: 3.5 cm (2.7 - 3.8) MV EXCURSION: 18.395 mm (> 18.000) MV EF SLOPE: 122 mm/s (70 - 150) EPSS: 0.3 cm MV E Buzz: 0.78 m/s MV DecT: 223 ms MV A Buzz: 0.94 m/s MV E/A Ratio: 0.82 AR PHT: 488 ms RAP: 5.00 mmHg RVSP: 18.87 mmHg FINDINGS -------- Sinus rhythm. This was a technically good study. LV size, wall thickness and systolic function are normal, with an EF greater than 55%. The left walter tricular size is normal. The right ventricle is normal in size. Normal LA size by volume 22+/-6 ml/m2. The right atrial size is normal. There is mild aortic regurgitation. Mild mitral regurgitation is present. Mild tricuspid regurgitation present. Right ventricular systolic pressure is normal at < 35 mmHg. There is no pulmonic regurgitation present. Echo free space indicative of a pericardial fat pad. CONCLUSIONS -------- 1. LV size, wall thickness and systolic function are normal, with an EF greater than 55%. 2. The left ventricular size is normal. 3. The right ventricle is normal in size. 4. Normal LA size by volume 22+/-6 ml/m2. 5. The right atrial size is normal. 6. There is mild aortic regurgitation. 7. Mild mitral regurgitation is present. 8. Mild tricuspid regurgitation present. 9. Echo free space indicative of a pericardial fat pad. GARDEN CONSULTANT: Joleen Payan RDCS
--- NOTE | 2021-09-17 12:58 | P.CRDCN ---
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 Patient follows in the office with Dr. Montes De Oca. We have been asked to see the patient in consultation for chest pain. Patient examined at the bedside. Patient presented to the hospital with a chief complaint of jenna st pain. She states the pain began suddenly over the weekend and has been intermittent since that time. She states it first began when she was just watching television. She reports it felt like a heaviness in her chest. She also reports a fall like her chest was burning. She does report that she noticed her blood pressure to be elevated at home when she checked it. The patient denies any chest pain at the time of my examination. However she does report pain with chest wall palpation. * EKG reveals sinus mechanism with ST depression noted * Chest xray no active cardio pulmonary disease. * Laboratory data: WBC 7.3. Hemoglobin 13.0. Platelet count 216. D-dimer 0.28. Sodium 138. Potassium 3.9. BUN 20. Creatinine 0.67. Magnesium 2.1. Troponin negative 3. * Current home cardiac medications include metoprolol succinate 25 mg daily * Echocardiogram completed revealing ejection fraction greater than 55%, mild aortic regurgitation, mild mitral regurgitation REVIEW OF SYSTEMS: At the time of my exam: CONSTITUTIONAL: Denies fever or chills. HEENT: Denies blurred vision, vision changes, or eye pain. Denies hemoptysis CARDIOVASCULAR: Denies chest pain. Denies orthopnea. Denies PND. Denies palpitations RESPIRATORY: Denies shortness of breath. GASTROINTESTINAL: Denies abdominal pain. Denies nausea or vomiting. HEMATOLOGIC: Denies bleeding disorders. GENITOURINARY: Denies any blood in urine. SKIN: Denies pruitis. Denies rash. PHYSICAL EXAM: VITAL SIGNS: Reviewed. GENERAL: Well-developed in no acute distress. HEENT: Head is normocephalic. Pupils are equal, round. Sclerae anicteric. Mucous membranes of the mouth are moist. Neck supple. No JVD or thyromegaly LUNGS: Respirations even and unlabored. Lungs essentially clear to auscultation bilaterally. HEART: Regular rate and rhythm. S1 and S2 heard. ABDOMEN: Soft. Nondistended. Nontender. EXTREMITIES: Normal range of motion. No clubbing or cyanosis. Peripheral p ulses intact. No lower extremity edema NEUROLOGIC: Awake and alert. Oriented x 3. ASSESSMENT: Chest pain, troponin negative x 3 History of costochondritis History of frequent PVCs, metoprolol outpatient Hyperlipidemia, most recent LDL 176, declining to take statins PLAN: An acute coronary event has been ruled out Resume home cardiac medications Repeat lipid panel. Patient refusing statin therapy at this time. Patient to undergo cardiac cath tomorrow with Dr. Montes De Oca Further recommendations pending patient course Nurse practitioner note has been reviewed by physician. Signing provider agrees with the documented findings, assessment, and plan of care. Past Medical History Past Medical History: Cancer Additional Past Medical History / Comment(s): hx of polyps, hx kidney stones, chronic back pain, and hypothyroid, melanoma arm, abnormal echo 09/11, irre gular heart rhythm History of Any Multi-Drug Resistant Organisms: None Reported Past Surgical History: Cholecystectomy, Hysterectomy, Orthopedic Surgery Additional Past Surgical History / Comment(s): sinus surgery, bilateral knee arthroscopy, lithotripsy Past Anesthesia/Blood Transfusion Reactions: No Reported Reaction Past Psychological History: No Psychological Hx Reported Additional Psychological History / Comment(s): years ago Smoking Status: Never smoker Past Alcohol Use History: Occasional Past Drug Use History: None Reported - Past Family History Father Family Medical History: Cancer Additional Family Medical History / Comment(s): colon,lung,prostate,alzheimer Mother Family Medical History: AFIB Medications and Allergies Home Medications Medication Instructions Recorded Confirmed Type Ascorbic Acid [Vitamin C] 500 mg PO DAILY 09/16/21 09/16/21 History Cholecalciferol [Vitamin D3 (25 25 mcg PO DAILY 09/16/21 09/16/21 History Mcg = 1000 Iu)] L.acidoph,Paracasei, B.lactis 1 cap PO DAILY 09/16/21 09/16/21 History [Probiotic] Metoprolol Succinate [Toprol XL] 25 mg PO DAILY 09/16/21 09/16/21 History Multivitamins, Thera [Multivitamin 1 tab PO DAILY 09/16/21 09/16/21 History (formulary)] [place]-3 Fatty Acids/Fish Oil [Fish 1 cap PO DAILY 09/16/21 09/16/21 History Oil 1,000 mg Softgel] Allergies Allergy/AdvReac Type Severity Reaction Status Date / Time adhesive tape Allergy PEELS SKIN Verified 09/16/21 19:18 Penicillins Allergy Rash/Hives Verified 09/16/21 19:18 Physical Exam Vitals: Vital Signs Temp Pulse Pulse Resp BP BP Pulse Ox 09/17/21 11:42 78 16 137/76 99 09/17/21 09:39 98.1 F 63 16 130/83 98 09/17/21 09:23 98 F 73 16 140/65 98 09/17/21 06:00 65 18 138/78 98 09/16/21 23:00 69 18 133/62 98 09/16/21 19:16 97.7 F 83 18 153/79 100 Intake and Output 09/16/21 09/17/21 09/17/21 22:59 06:59 14:59 Other: # Voids 1 Weight 86.183 kg 87.5 kg Results 09/17/21 02:42 09/17/21 02:42 Cardiac Enzymes 09/16/21 09/16/21 09/16/21 Range/Units 19: 19: 23:52 AST 34 (14-36) U/L Troponin I <0.012 <0.012 (0.000-0.034) ng/mL 09/17/21 Range/Units 02:42 AST (14-36) U/L Troponin I <0.012 (0.000-0.034) ng/mL Coagulation 09/16/21 Range/Units 19: PT 9.9 (9.0-12.0) sec APTT 23.1 (22.0-30.0) sec CBC 09/16/21 09/17/21 Range/Units 19:27 02:42 WBC 8.5 7.3 (3.8-10.6) k/uL RBC 4.50 4.01 (3.80-5.40) m/uL Hgb 14.5 13.0 (11.4-16.0) gm/dL Hct 43.7 40.0 (34.0-46.0) % Plt Count 247 216 (150-450) k/uL Comprehensive Metabolic Panel 09/16/21 09/17/21 Range/Units 19: 02:42 Sodium 139 138 (137-145) mmol/L Potassium 3.9 3.9 (3.5-5.1) mmol/L Chloride 106 109 H (98-107) mmol/L Carbon Dioxide 26 22 (22-30) mmol/L BUN 20 H 20 H (7-17) mg/dL Creatinine 0.76 0.67 (0.52-1.04) mg/dL Glucose 116 H 95 (74-99) mg/dL Calcium 9.6 8.8 (8.4-10.2) mg/dL AST 34 (14-36) U/L ALT 29 (4-34) U/L Alkaline Phosphatase 110 (38-126) U/L Total Protein 7.5 (6.3-8.2) g/dL Albumin 4.4 (3.5-5.0) g/dL Current Medications Generic Name Dose Route Start Last Admin Trade Name Freq PRN Reason Stop Dose Admin Alprazolam 0.25 mg 09/17/21 10:15 Alprazolam 0.25 Mg Tab PO Q6HR PRN Mild Anxiety Alprazolam 0.5 mg 09/17/21 10:15 Alprazolam 0.5 Mg Tab PO Q6HR PRN Moderate Anxiety Aspirin 325 mg 09/18/21 08:00 Aspirin 325 Mg Tab PO 09/18/21 08:01 ONCE ONE Aspirin 81 mg 09/19/21 09:00 Aspirin 81 Mg PO DAILY [facility] Atorvastatin Calcium 80 mg 09/18/21 08:00 Atorvastatin 80 Mg Tab PO 09/18/21 08:01 ONCE ONE Heparin Sodium (Porcine) 5,000 unit 09/17/21 00:00 09/17/21 07:09 Heparin Sodium,Porcine/Pf 5,000 Unit/0.5 Ml Syringe SQ 5,000 unit Q8HR [facility] Administration Heparin Sodium (Porcine) 10, 1,001 mls @ 999 mls/hr 09/18/21 07:00 000 unit/ Sodium Chloride IRRIGATION 09/18/21 23:00 ONCE PRN INTRA-OP Heparin Sodium (Porcine) 2,500 250.5 mls @ 250 mls/hr 09/18/21 07:00 unit/ Sodium Chloride IRRIGATION 09/18/21 23:00 ONCE PRN INTRA-OP Sodium Chloride 1,000 ml/ IV 1,000 mls @ 87.5 mls/hr 09/17/21 23:00 Solution IV .[id number] XAVIER 1 ML/KG/HR Ketorolac Tromethamine 15 mg 09/16/21 21:37 Ketorolac 15 Mg/Ml 1 Ml Vial IVP 09/19/21 21:38 Q6HR PRN Moderate Pain Metoprolol Succinate 25 mg 09/17/21 13:00 Metoprolol Succinate (Er) 25 Mg Tab.Er.24h PO DAILY@1300 XAVIER Morphine Sulfate 4 mg 09/16/21 21:37 Morphine Sulfate 4 Mg/Ml Syringe IV Q4HR PRN Severe Pain Naloxone HCl 0.2 mg 09/16/21 21:37 Naloxone 0.4 Mg/Ml 1 Ml Vial IV Q2M PRN Opioid Reversal Nitroglycerin 0.4 mg 09/17/21 10:15 Nitroglycerin Sl Tabs 0.4 Mg Tab SUBLINGUAL Q5M PRN Chest Pain Ondansetron HCl 4 mg 09/16/21 21:37 09/17/21 07:11 Ondansetron 4 Mg/2 Ml Vial IVP 4 mg Q8HR PRN Administration Nausea And Vomiting Intake and Output 09/16/21 09/17/21 09/17/21 22:59 06:59 14:59 Other: # Voids 1 Weight 86.183 kg 87.5 kg Patient Weight 09/18/21 06:59 Weight 87.5 kg 09/17/21 02:42 09/17/21 02:42
[2021-09-17] MEDS: METOPROLOL SUCCINATE (ER) 25 MG TAB.ER.24H PO SCH (15:30)
[2021-09-17 16:00] LABS: Chol/HDL Ratio 3.31 Ratio; LDL Cholesterol,Calculated 121.1 mg/dL (0.0-131.0); VLDL Calculation 10.84 mg/dL (5.00-40.00)
[2021-09-17] MEDS: PANTOPRAZOLE 40 MG/10 ML VIAL IVP SCH (16:29)
[2021-09-17] MEDS: ACETAMINOPHEN TAB 325 MG TAB PO PRN (18:12)
[2021-09-17] MEDS: SODIUM CHLORIDE 0.9% 1,000 ML in EMPTY BAG 1 BAG IV SCH (23:17)
[2021-09-18] MEDS ORDERED: HEPARIN SODIUM,PORCINE 2,500 UNIT in SODIUM CHLORIDE 0.9% 250 ML IRRIGATION PRN (07:00)
[2021-09-18] MEDS ORDERED: HEPARIN SODIUM,PORCINE 10,000 UNIT in SODIUM CHLORIDE 0.9% 1,000 ML IRRIGATION PRN (07:00)
[2021-09-18] MEDS ORDERED: ASPIRIN 325 MG TAB PO ONE (08:00)
[2021-09-18] MEDS ORDERED: ATORVASTATIN 80 MG TAB PO ONE (08:00)
--- NOTE | 2021-09-18 08:15 | P.HPIM ---
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 She states the pain began suddenly over the weekend and has been intermittent since that time. She states it first began when she was just watching television. She reports it felt like a heaviness in her chest. She also reports a fall like her chest was burning. She does report that she noticed her blood pressure to be elevated at home when she checked it. The patient denies any chest pain at the time of my examination. However she does report pain with chest wall palpation. On presentation pt hypertensive, EKG NSR, labs unremarkable, trop negative. Review of Systems All systems: negative Constitutional: Reports malaise, Denies chills, Denies fever Eyes: denies blurred vision, denies pain Ears, nose, mouth and throat: Denies headache, Denies sore throat Cardiovascular: Reports chest pain, Denies shortness of breath Respiratory: Denies cough Gastrointestinal: Denies abdominal pain, Denies diarrhea, Denies nausea, Denies vomiting Genitourinary: Denies dysuria, Denies hematuria Musculoskeletal: Denies myalgias Integumentary: Denies pruritus, Denies rash Neurological: Denies numbness, Denies weakness Psychiatric: Denies anxiety, Denies depression Endocrine: Denies fatigue, Denies weight change Past Medical History Past Medical History: Cancer Additional Past Medical History / Comment(s): hx of polyps, hx kidney stones, chronic back pain, and hypothyroid, melanoma arm, abnormal echo 09/11, irregular heart rhythm History of Any Multi-Drug Resistant Organisms: None Reported Past Surgical History: Cholecystectomy, Hysterectomy, Orthopedic Surgery Additional Past Surgical History / Comment(s): sinus surgery, bilateral knee arthroscopy, lithotripsy Past Anesthesia/Blood Transfusion Reactions: No Reported Reaction Past Psychological History: No Psychological Hx Reported Additional Psychological History / Comment(s): years ago Smoking Status: Never smoker Past Alcohol Use History: Occasional Past Drug Use History: None Reported - Past Family History Father Family Medical History: Cancer Additional Family Medical History / Comment(s): colon,lung,prostate,alzheimer Mother Family Medical History: AFIB Medications and Allergies Home Medications Medication Instructions Recorded Confirmed Type Ascorbic Acid [Vitamin C] 500 mg PO DAILY 09/16/21 09/16/21 History Cholecalciferol [Vitamin D3 (25 25 mcg PO DAILY 09/16/21 09/16/21 History Mcg = 1000 Iu)] Addi Collins Mayank.lactis 1 cap PO DAILY 09/16/21 09/16/21 History [Probiotic] Metoprolol Succinate [Toprol XL] 25 mg PO DAILY 09/16/21 09/16/21 History Multivitamins, Thera [Multivitamin 1 tab PO DAILY 09/16/21 09/16/21 History (formulary)] [place]-3 Fatty Acids/Fish Oil [Fish 1 cap PO DAILY 09/16/21 09/16/21 History Oil 1,000 mg Softgel] Allergies Allergy/AdvReac Type Severity Reaction Status Date / Time adhesive tape Allergy PEELS SKIN Verified 09/16/21 19:18 Penicillins Allergy Rash/Hives Verified 09/16/21 19:18 Physical Exam Vitals: Vital Signs Temp Pulse Pulse Resp BP BP Pulse Ox 09/18/21 04:22 98.0 F 64 12 129/60 98 09/18/21 00:00 63 16 135/79 96 09/17/21 20:00 97.9 F 74 16 121/75 96 09/17/21 15:00 89 16 138/76 98 09/17/21 11:42 78 16 137/76 99 09/17/21 09:39 98.1 F 63 16 130/83 98 09/17/21 09:23 98 F 73 16 140/65 98 Intake and Output 09/17/21 09/18/21 09/18/21 22:59 06:59 14:59 Intake Total 780 Balance 780 Intake: Oral 780 Other: # Voids 1 1 Gen: well developed, well nourished, NAD HEENT: normocephalic, atraumatic, mucus membranes moist Neck: supple, no thyromegaly or JVD CV: RRR, no murmur Lungs: Normal effort, clear throughout Abd: soft, nontender non distended Neuro: alert and oriented x3, no focal deficit Skin: warm and dry Results CBC & Chem 7: 09/17/21 02:42 09/17/21 02:42 Thrombosis Risk Factor Assmnt - Choose All That Apply Each Factor Represents 1 point: Obesity (BMI >25) Each Risk Factor Represents 2 Points: Age 61-74 years Thrombosis Risk Factor Assessment Total Risk Factor Score: 3 Thrombosis Risk Factor Assessment Level: Moderate Risk Assessment and Plan Plan: 1. Chest pain. Hx HTN and HLD. ACS ruled out. Cardiology consult and plan for cath 2. HTN. Continue metoprolol
[2021-09-18] MEDS: ASCORBIC ACID 500 MG TAB PO SCH (08:45)
[2021-09-18] MEDS: MULTIVITAMINS, THERA 1 EACH TAB PO SCH (08:45)
[2021-09-18] MEDS: CHOLECALCIFEROL 25 MCG (1000 IU) TABLET PO SCH (08:45)
[2021-09-18] MEDS: PANTOPRAZOLE 40 MG/10 ML VIAL IVP SCH (08:45)
[2021-09-18] MEDS: HEPARIN SODIUM,PORCINE/PF 5,000 UNIT/0.5 ML SYRINGE SQ SCH ×3 (08:53→22:45)
[2021-09-18] MEDS: LACTOBACILLUS ACIDOPH & BULGAR 1 EACH PACKET PO SCH (09:56)
[2021-09-18] MEDS: SODIUM CHLORIDE 0.9% 1,000 ML in EMPTY BAG 1 BAG IV SCH (11:38)
[2021-09-18] MEDS ORDERED: SODIUM CHLORIDE 0.9% 1,000 ML IV ONE (12:30)
[2021-09-18] MEDS: MIDAZOLAM 2 MG/2 ML VIAL IV ONE ×3 (12:34→12:59)
[2021-09-18] MEDS: LIDOCAINE 1% INJ 10MG/ML (20 ML MDV) SQ ONE ×2 (12:37→12:50)
[2021-09-18] MEDS ORDERED: fentaNYL (PF) 50 MCG/ML 2 ML AMP IV ONE (12:49)
[2021-09-18] MEDS ORDERED: NITROGLYCERIN SL TABS 0.4 MG TAB SUBLINGUAL ONE (12:59)
[2021-09-18] MEDS ORDERED: IOPAMIDOL-370 100ML BTL INJ ONE (13:08)
[2021-09-18] MEDS ORDERED: RX INFO: IV CONTRAST WAS GIVEN 1 EACH MISC MISCELLANE PRN (13:13)
[2021-09-18] MEDS: METOPROLOL SUCCINATE (ER) 25 MG TAB.ER.24H PO SCH (14:06)
--- NOTE | 2021-09-18 14:23 | CC ---
CARDIAC CATHETERIZATION REPORT DATE OF SERVICE: 09/18/2021. PROCEDURE: Left heart catheterization, coronary angiography. PERFORMED BY: Dr. Prateek Montes De Oca. Moderate conscious sedation time was 38 minutes. Patient was administered Versed and fentanyl. Oxygen saturation, hemodynamics and EKG were monitored closely. CLINICAL INFORMATION: Mrs. Lennie Saldaña is a 71-year-old lady with a history of hypertension, hyperlipidemia, who does not take statins, came into the hospital with chest pain. She was actually seen by me a few weeks ago, was advised to have a stress test, but came into the hospital with chest discomfort, went on to have persistent chest pain with negative troponins. She was advised cardiac catheterization, given her presentation. Risks, benefits, options, rationale were explained. PROCEDURE NOTE: Under local anesthesia and strict aseptic precautions, I attempted a right radial approach. I was able to gain access but could not thread the wire. Pulse was extremely weak and there was some difficulty last time also, 5 to 6 years ago, when she had a cardiac catheterization from right radial approach. I therefore switched over to the right femoral after applying a pressure bandage. From right femoral approach I performed cardiac catheterization under strict aseptic precautions and local anesthesia. Micropuncture needle technique was used. LV-gram was not performed. LV pressures were checked. The sheath was then taken out and Angio-Seal device used to secure hemostasis and she was sent to the room in stable condition. Results were discussed with the patient and her . CARDIAC CATHETERIZATION FINDINGS: Left ventricular end-diastolic pressure was about 8 to 10 mmHg without any gradient across the aortic valve. CORONARY ANGIOGRAPHY FINDINGS: RIGHT CORONARY ARTERY: Large dominant vessel, gives off a conus branch separately. Large vessel. No significant disease. Distally it bifurcates into a large PDA, small PLV, with minor irregularities. LEFT MAIN CORONARY ARTERY: This is a long, disease-free vessel that bifurcates into LAD and circumflex. LEFT ANTERIOR DESCENDING CORONARY ARTERY: Good-caliber vessel extends along the anterior wall, gives off a large diagonal and then runs all the way to the apex. After the diagonal branch, the caliber of the vessel decreases and the distal one-fourth is somewhat small, but no significant disease in the entire LAD system. Diagonal is of good caliber and disease-free. LEFT POSTERIOR CIRCUMFLEX CORONARY ARTERY: Nondominant vessel. No significant disease. Minor irregularities. LEFT VENTRICULOGRAM: Left ventriculogram was not performed. FINAL IMPRESSION: This patient has normal filling pressures. No gradient. She has a right-dominant system. No significant obstructive CAD. Compared to the angiogram from 2015, the appearance is very similar. RECOMMENDATIONS: Findings were discussed with the patient and her . Continued medical therapy with risk factor modification was advised. She will be discharged tomorrow and I will see her in the office next week. MMODL / IJN: [id number] /
[2021-09-18] MEDS: ACETAMINOPHEN TAB 325 MG TAB PO PRN (16:24)
[2021-09-19 06:35] LABS: Basophils # (A) 0.1 k/uL (0-0.2); Basophils % (A) 1 %; Eosinophils # (A) 0.2 k/uL (0-0.7); Eosinophils % (A) 2 %; HCT 43.5 % (34.0-46.0); HGB 14.1 gm/dL (11.4-16.0); Lymphocytes % (A) 41 %; MCH 31.8 pg (25.0-35.0); MCHC 32.3 g/dL (31.0-37.0); MCV 98.6 fL (80.0-100.0); Mean Platelet Volume 8.3; Monocytes # (A) 0.5 k/uL (0-1.0); Monocytes % (A) 7 %; Neutrophils # (A) 3.5 k/uL (1.3-7.7); Neutrophils % (A) 48 %; Platelet Count 230 k/uL (150-450); RBC 4.41 m/uL (3.80-5.40); RDW 13.1 % (11.5-15.5); WBC 7.3 k/uL (3.8-10.6)
[2021-09-19] MEDS: LACTOBACILLUS ACIDOPH & BULGAR 1 EACH PACKET PO SCH (08:11)
[2021-09-19] MEDS: ASCORBIC ACID 500 MG TAB PO SCH (08:20)
[2021-09-19] MEDS: HEPARIN SODIUM,PORCINE/PF 5,000 UNIT/0.5 ML SYRINGE SQ SCH (08:20)
[2021-09-19] MEDS: PANTOPRAZOLE 40 MG/10 ML VIAL IVP SCH (08:20)
[2021-09-19] MEDS: CHOLECALCIFEROL 25 MCG (1000 IU) TABLET PO SCH (08:20)
[2021-09-19] MEDS: MULTIVITAMINS, THERA 1 EACH TAB PO SCH (08:20)
[2021-09-19] MEDS ORDERED: ASPIRIN 81 MG PO SCH (09:00)
[2021-09-19 09:14] VITALS: BP 106/68; PULSE 75; RESP 16; TEMP 98.2
--- NOTE | 2021-09-19 12:25 | P.PN ---
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 Patient follows in the office with Dr. Montes De Oca. We have been asked to see the patient in consultation for chest pain. Patient examined at the bedside. Patient presented to the hospital with a chief complaint of chest pain. She states the pain began suddenly over the weekend and has been intermittent since that time. She states it first began when she was just watching television. She reports it felt like a heaviness in her chest. She also reports a fall like her chest was burning. She does report that she noticed her blood pressure to be elevated at home when she checked it. The patient denies any chest pain at the time of my examination. However she does report pain with chest wall palpation. * EKG reveals sinus mechanism with ST depression noted * Chest xray no active cardio pulmonary disease. * Laboratory data: WBC 7.3. Hemoglobin 13.0. Platelet count 216. D-dimer 0.28. Sodium 138. Potassium 3.9. BUN 20. Creatinine 0.67. Magnesium 2.1. Troponin negative 3. * Current home cardiac medications include metoprolol succinate 25 mg daily * Echocardiogram completed revealing ejection fraction greater than 55%, mild aortic regurgitation, mild mitral regurgitation 09/19/2021 Patient is status post cardiac catheterization revealing normal filling pressures. No gradient. Right dominant system. No significant obstructive CAD. Compared to angiogram from 2015, the appearance is very similar. Patient denies chest pain or pressure. She denies shortness of breath. Vital signs are stable. PHYSICAL EXAM: VITAL SIGNS: Reviewed. GENERAL: Well-developed in no acute distress. HEENT: Head is normocephalic. Pupils are equal, round. Sclerae anicteric. Mucous membranes of the mouth are moist. Neck supple. No JVD or thyromegaly LUNGS: Respirations even and unlabored. Lungs essentially clear to auscultation bilaterally. HEART: Regular rate and rhythm. S1 and S2 heard. ABDOMEN: Soft. Nondistended. Nontender. EXTREMITIES: Normal range of motion. No clubbing or cyanosis. Peripheral pulses intact. No lower extremity edema NEUROLOGIC: Awake and alert. Oriented x 3. ASSESSMENT: Chest pain, troponin negative x 3 History of costochondritis History of frequent PVCs, metoprolol outpatient Hyperlipidemia, most recent LDL 176, now improved to 121, declining to take statins PLAN: Continue current cardiac medications Dr. Adam discussed statin therapy at length with patient. Patient resistant at this time. Will send rx for pravachol Patient may be discharged home today Nurse practitioner note has been reviewed by physician. Signing provider agrees with the documented findings, assessment, and plan of care. Objective - Vital Signs Vital signs: Vital Signs Temp 98.2 F 09/19/21 08:15 Pulse 75 09/19/21 08:15 Resp 16 09/19/21 08:15 BP 106/68 09/19/21 08:15 Pulse Ox 95 09/19/21 08:15 Intake & Output 09/18/21 09/19/21 09/19/21 18:59 06:59 18:59 Intake Total 950 540 240 Balance 950 540 240 Intake: IV 450 Sodium Chloride 0.9% 1, 150 000 ml In Empty Bag 1 bag @ 75 mls/hr IV .[id number] [facility] Rx#:[id number] Oral 500 540 240 Other: Voiding Method Toilet Toilet # Voids 3 - Labs CBC & Chem 7: 09/19/21 05:56 09/17/21 02:42
--- NOTE | 2021-09-19 15:39 | P.DS ---
Providers Date of admission: 09/16/21 21:37 Expected date of discharge: 09/19/21 Attending physician: Elan Alcazar MD Consults: 09/16/21 21:38 Consult Physician Routine Consulting Provider: [facility] Consult Reason/Comments: chest pain Do you want consulting provider notified?: Yes Primary care physician: Ariadna Alexandra Hospital Course: Chest pain,ACS ruled out. Status post cardiac catheterization reporting no significant obstructive CAD, normal feeling pressures. 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 She states the pain began suddenly over the weekend and has been intermittent since that time. She states it first began when she was just watching television. She reports it felt like a heaviness in her chest. She also reports a fall like her chest was burning. She does report that she noticed her blood pressure to be elevated at home when she checked it. The patient denies any chest pain at the time of my examination. However she does report pain with chest wall palpation. On presentation pt hypertensive, EKG NSR, labs unremarkable, trop negative. Status post cardiac catheterization reporting normal filling pressures, no significant obstructive CAD. Denies chest pain, palpitations or shortness of breath. Patient will be discharged home today in stable condition with guarded prognosis pending final DC recommendations and clearance per cardiology. The impression and plan of care has been dictated as directed. : I performed a history and examination of this patient, discussed the same with the dictator. I agree with the dictator's note ,documented as a scribe. Any additional findings or plans will be noted. Patient Condition at Discharge: Stable Plan - Discharge Summary Discharge Rx Participant: No New Discharge Prescriptions: New Aspirin 81 mg PO DAILY #90 tab Pravastatin Sodium [Pravachol] 20 mg PO HS #90 tab Continue Multivitamins, Thera [Multivitamin (formulary)] 1 tab PO DAILY Metoprolol Succinate [Toprol XL] 25 mg PO DAILY L.acidoph,Paracasei, B.lactis [Probiotic] 1 cap PO DAILY [place]-3 Fatty Acids/Fish Oil [Fish Oil 1,000 mg Softgel] 1 cap PO DAILY Cholecalciferol [Vitamin D3 (25 Mcg = 1000 Iu)] 25 mcg PO DAILY Ascorbic Acid [Vitamin C] 500 mg PO DAILY Discharge Medication List Ascorbic Acid [Vitamin C] 500 mg PO DAILY 09/16/21 [History] Cholecalciferol [Vitamin D3 (25 Mcg = 1000 Iu)] 25 mcg PO DAILY 09/16/21 [History] L.acidoph,Paracasei, B.lactis [Probiotic] 1 cap PO DAILY 09/16/21 [History] Metoprolol Succinate [Toprol XL] 25 mg PO DAILY 09/16/21 [History] Multivitamins, Thera [Multivitamin (formulary)] 1 tab PO DAILY 09/16/21 [History] [place]-3 Fatty Acids/Fish Oil [Fish Oil 1,000 mg Softgel] 1 cap PO DAILY 09/16/21 [History] Aspirin 81 mg PO DAILY #90 tab 09/19/21 [Rx] Pravastatin Sodium [Pravachol] 20 mg PO HS #90 tab 09/19/21 [Rx] Follow up Appointment(s)/Referral(s): Jose J Montes De Oca MD [STAFF PHYSICIAN] - 09/26/21 4:00 pm Elan Alcazar MD [STAFF PHYSICIAN] - 3 Days (please call and make your follow up appointment ) Patient Instructions/Handouts: *Surgery [facility] - After Heart Catheterization - Cell Tender Helper Instructions Discharge Disposition: HOME WITH HOME HEALTH SERVICES
== END 2021-09-19 10:50 | disposition home health service (06) ==
LOC: EC 19:08 → 6NMEDSUR 21:37 → 3SCARD 09-17 08:34
PROVIDERS: ADMIT Family Medicine; ATTEND Family Medicine
DX: R07.89 Other chest pain (principal); I10 Essential (primary) hypertension; I49.3 Ventricular premature depolarization; I08.3 Combined rheumatic disorders of mitral, aortic and tricuspid valves; E78.5 Hyperlipidemia, unspecified; E03.9 Hypothyroidism, unspecified; G89.29 Other chronic pain; M54.9 Dorsalgia, unspecified; R93.1 Abnormal findings on diagnostic imaging of heart and coronary circulation; E66.9 Obesity, unspecified; Z68.28 Body mass index [BMI] 28.0-28.9, adult; Z79.899 Other long term (current) drug therapy; Z88.0 Allergy status to penicillin; Z91.048 Other nonmedicinal substance allergy status; Z87.19 Personal history of other diseases of the digestive system; Z87.442 Personal history of urinary calculi; Z87.39 Personal history of other diseases of the musculoskeletal system and connective tissue; Z85.820 Personal history of malignant melanoma of skin; Z90.49 Acquired absence of other specified parts of digestive tract; Z90.710 Acquired absence of both cervix and uterus; Z98.890 Other specified postprocedural states; Z80.1 Family history of malignant neoplasm of trachea, bronchus and lung; Z80.0 Family history of malignant neoplasm of digestive organs; Z80.42 Family history of malignant neoplasm of prostate; Z82.0 Family history of epilepsy and other diseases of the nervous system; Z82.49 Family history of ischemic heart disease and other diseases of the circulatory system
CPT/HCPCS: 96376 ×2; 96372; 96375 ×2; 96374; 99285; 36415; 93005; 93306; 93458; 85379; 80061; 80053; 80048; 83735; 84484 ×2; 85025 ×3; 85610; 85730; 71046; G0378 ×5; C1760; C1894 ×2; C1769 ×2; J2250; J2405 ×2; J2001; J3010; C9113 ×3; Q9967; J1644 ×3

== ENCOUNTER → 2022-01-02 | Outpatient (CLI) | payer MEDICARE ==
--- NOTE | 2022-01-02 19:47 | CONS ---
CONSULTATION DATE OF SERVICE: 01/02/2022 71-year-old lady has been evaluated in [facility] for possible obstructive sleep apnea-hypopnea syndrome. HISTORY OF PRESENT ILLNESS SLEEP-WAKE EVALUATION: SLEEP SCHEDULE: Patient usual sleep schedule from 10 or 11 p.m. to 5 or 6 a.m. basically 7 days a week. FALLING ASLEEP: Sometimes she has problems with falling asleep has TV set in bedroom. DURING SLEEP: She usually sleeps on the back and side position. She has loud snoring and witnessed episodes of stopped breathing during sleep by her family. She wakes up from sleep 3 times with dry mouth and nocturia. DURING THE DAY/SLEEP WAKE EVALUATION: In the morning the patient wakes up tired has difficulties paying attention, falling asleep during the day, worries about her sleep, has problems with memory, concentration, depression and anxiety. [place] Sleepiness Scale significantly increased to 13. Oximetry which was done during sleep showed episodes of oxygen desaturation. No history of hypnagogic hallucinations, sleep paralysis or cataplexy. PAST MEDICAL HISTORY: Positive for COVID19 in June 2021, cardiac arrhythmia episodes, hypothyroidism. PAST SURGICAL HISTORY: Sinus surgery, partial hysterectomy, cholecystectomy, bilateral arthroscopic knee surgery. 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 SOCIAL HISTORY: Negative for smoking. Alcohol consumption rarely. FAMILY HISTORY: Hypertension, stroke, heart problems, arthritis, cancer. REVIEW OF SYSTEMS: Multiple awakenings from sleep, loud snoring, sleepiness during the day. The patient may take up to 2 naps a day. PHYSICAL EXAMINATION: GENERAL: lady without distress. BP 142/80, HR 79, RR 16, height 5 feet 9-2/3 inches, weight 191.4 pounds, body mass index 28.4, temperature 96.6, oxygen saturation at room air 98%. Oropharynx: Low position of soft palate, Mallampati 3. NECK 14-1/4 inches in circumference. Neck: Supple, no JVD. Thyroid is not palpable. LUNGS: Clear to percussion and to auscultation. Good air exchange. No wheezing or rhonchi. HEART: S1, S2 regular. No murmurs, gallops, or rubs. ABDOMEN: Soft and nontender. Bowel sounds are present. No organomegaly appreciated. EXTREMITIES: No clubbing or cyanosis. ASSEMBLY MACHINE FEEDER: Awake, alert, and oriented X3. Cranial nerves 2 to 7 intact. There is no fasciculation or atrophy. noted. No focal deficits observed. IMPRESSION: 1. Loud snoring, witnessed episodes of stopped breathing during sleep, multiple awakenings from sleep, low position of soft palate, Mallampati 3, sleepiness, [place] Sleepiness Scale is 13, obstructive sleep apnea-hypopnea syndrome. 2. Status post COVID-19 in June 2021. 3. Hypothyroidism. 4. History of cardiac arrhythmia. 5. Status post sinus surgery. 6. Status post partial hysterectomy. 7. Status post cholecystectomy. 8. Status post bilateral arthroscopic knee surgeries. PLAN: 1. Polysomnography for evaluation of patient's breathing during sleep. 2. CPAP/BiPAP titration if sleep study confirms obstructive sleep apnea-hypopnea syndrome. 3. Preferable position during sleep on the side. 4. No driving if patient feels any sleepiness. 5. I will see patient for follow up visit to explain results of testing and following plan. Thank you very much for allowing me to participate in the management of your patient. Sincerely, Hernando Narayan MD, PhD, FAASM Diplomat of [place] [employer] Sleep Medicine Board of [place] [employer] Senior Reliability Engineer of [facility] [place] MMODL / IJN: [id number] /
== END | disposition home or self-care (01) ==
LOC: SLEEP 14:20
PROVIDERS: ATTEND Internal Medicine
DX: G47.33 Obstructive sleep apnea (adult) (pediatric) (principal); E03.9 Hypothyroidism, unspecified; Z86.16 Personal history of COVID-19; Z86.79 Personal history of other diseases of the circulatory system; Z98.890 Other specified postprocedural states; Z90.49 Acquired absence of other specified parts of digestive tract; Z96.653 Presence of artificial knee joint, bilateral
CPT/HCPCS: 99211

== ENCOUNTER → 2022-06-20 | Outpatient (CLI) | payer MEDICARE ==
--- NOTE | 2022-06-21 04:53 | MR ---
EXAMINATION TYPE: MR foot LT wo con DATE OF EXAM: 06/20/2022 COMPARISON: None HISTORY: Left foot pain, spot in big toe Multiplanar multiecho imaging of the left foot performed with no contrast. There is mild subcutaneous edema in the dorsum of the foot. Achilles tendon is intact. The medial and lateral flexor tendons appear intact. There is ankle joint effusion. There is a rounded 6 mm fluid signal lesion in the medial base of the proximal phalanx of the big toe . No expansion. There is a second smaller focus of fluid measuring 3 mm in the proximal phalanx of th e big toe. No fracture line seen. The ankle mortise is anatomic. There is subcutaneous edema around t he ankle. There is minor spurring at the first MP joint. IMPRESSION: Subcutaneous edema around the foot and ankle. Joint effusion consistent with some nonspecific synovit is. No fracture seen. Cystic sharply marginated lesions in the proximal phalanx of the big toe consistent with simple bone cyst. There is also another 5 mm fluid collection lateral to the first metatarsal head consistent wit h synovial cyst.
== END | disposition home or self-care (01) ==
LOC: RADMRIMAIN 17:33
PROVIDERS: ATTEND Podiatrist Foot & Ankle Surgery
DX: D16.32 Benign neoplasm of short bones of left lower limb (principal); R60.0 Localized edema; M85.672 Other cyst of bone, left ankle and foot; M25.475 Effusion, left foot

== ENCOUNTER → 2023-09-09 | Outpatient (CLI) | payer MEDICARE ==
--- NOTE | 2023-09-09 09:48 | CT ---
EXAMINATION TYPE: CT sinus wo con CT DLP: 606 mGycm, Automated exposure control for dose reduction was used. DATE OF EXAM: 09/09/2023 8:35 AM COMPARISON: 10/31/2010. CLINICAL INDICATION:Female, 73 years old with history of J32.0 sinusitis; , sinusitis TECHNIQUE: Multiple thin axial images were obtained through the paranasal sinuses without the use of IV contrast. Additional coronal and sagittal reformatted images were submitted for evaluation. Contrast used: none Oral contrast used: none FINDINGS: Frontal sinuses: Absent right frontal sinus. The left frontal sinus has minimal mucosal thickening th e frontonasal recesses patent. Maxillary Sinuses: Antrostomy changes bilaterally. No significant mucosal thickening. Maxillary Infundibula([facility]): Antrostomy changes bilaterally. No Magdiel cells identified. Ethmoid sinuses: Mild mucosal thickening bilaterally. Ethmoidal notch: Protected and abutting the lat eral lamina. Sphenoid sinuses: Normally developed and aerated. There is sellar sphenoid sinus pneumatization witho ut evidence of dehiscence. No dehiscence of carotid canal. No evidence of optic nerve dehiscence wit hin the sphenoid sinus. No evidence of Onodi cells. Sphenoethmoidal recesses: Clear. Nasal septum: Within normal limits.. Nasal Turbinates: Within normal limits. Mastoid air cells & middle ears: The air cells are clear. The middle ears are grossly unremarkable. Modified Soft tissues & Brain: Partially seen without gross abnormality. Globes are intact. Atheroscl erosis of the intracranial vasculature. Other: Cribriform plate demonstrates symmetric Keros classification type 1 cribriform plate. No evidence of bony dehiscence of skull base. Lamina papyracea is intact without evidence of remote orbital fracture or orbital prolapse into the e thmoid sinus. IMPRESSION: Antrostomy changes without significant paranasal sinus disease. The left frontonasal and sphenoethmoi tenisha recesses are clear.
== END | disposition home or self-care (01) ==
LOC: RADCTMAIN 08:17
PROVIDERS: ATTEND Otolaryngology
DX: J32.0 Chronic maxillary sinusitis (principal)
CPT/HCPCS: 70486

== ENCOUNTER → 2024-08-13 | Outpatient (CLI) | payer MEDICARE ==
--- NOTE | 2024-08-13 08:31 | USB ---
Reason for Exam: Clinical finding. Patient History: Menarche at age 13. Hysterectomy at age 33. Postmenopausal. Excisional Biopsy on the Right side. Excisional Biopsy on the Right side. Risk Values: Alyx 5 year model risk: 1.9%. NCI Lifetime model risk: 4.4%. Technique: Method: Whole Breast Handheld. Prior Study Comparison: 05/20/1996 Screening Mammogram, Unknown. 05/08/1998 Bilateral Special View Mammogram, [facility]. 02/07/2000 Bilateral Special View Mammogram, [facility]. Findings: The whole breast of the right breast, the axilla of the right breast and the retroareolar of the right breast were scanned. A complete US of all four quadrants of the breast , axilla, and retro-areolar region were reviewed. No solid or cystic masses are identified. No significant duct ectasia or axillary adenopathy. Overall Assessment: Incomplete: need additional imaging evaluation, BI-RAD 0 Management: Diagnostic Mammogram of both breasts. If there is persistence of nipple discharge, consideration can be given to breast surgery referral to further assess. Suspicious discharge includes spontaneous clear/bloody discharge localized to a single pore on the nipple. The patient is overdue for mammograms. A clinical breast exam by your physician is recommended on an annual basis and results should be correlated with mammographic findings. This exam should not preclude additional follow-up of suspicious palpable abnormalities. Results were given to the patient verbally at the time of exam. [facility], , 08/13/2024 8:28 AM. Electronically signed and approved by: Nora Reilly M.D. Radiologist
== END | disposition home or self-care (01) ==
LOC: RADUSWWP 07:46
PROVIDERS: ATTEND Family Medicine
DX: N64.52 Nipple discharge (principal); Z78.0 Asymptomatic menopausal state

== ENCOUNTER 2025-01-07 16:00 | Observation (INO) | payer MEDICARE ==
--- NOTE | 2025-01-07 17:00 | ED ---
General Adult HPI - General Chief complaint: Chest Pain Stated complaint: Chest pain Time Seen by Provider: 01/07/25 16:44 Source: patient, family, RN notes reviewed Mode of arrival: wheelchair Limitations: no limitations - History of Present Illness Initial comments: Patient is a 74-year-old female present to the emergency department with concerns with chest discomfort. Onset of symptoms was an hour ago while playing a board game at rest. Discomfort was mild to moderate up to 5/10. Discomfort has resolved. Patient also felt lightheaded and short of breath. Patient also had some tingling in her arms. Other symptoms are near resolved. No history of similar symptoms previously. Patient checked her pulse at home at 44. - Related Data Home Medications Medication Instructions Recorded Confirmed Ascorbic Acid [Vitamin C] 500 mg PO DAILY 09/16/21 09/16/21 Cholecalciferol [Vitamin D3 (25 25 mcg PO DAILY 09/16/21 09/16/21 Mcg = 1000 Iu)] L.acidoph,Paracasei, B.lactis 1 cap PO DAILY 09/16/21 09/16/21 [Probiotic] Metoprolol Succinate [Toprol XL] 25 mg PO DAILY 09/16/21 09/16/21 Multivitamins, Thera [Multivitamin 1 tab PO DAILY 09/16/21 09/16/21 (formulary)] Shade-3 Fatty Acids/Fish Oil [Fish 1 cap PO DAILY 09/16/21 09/16/21 Oil 1,000 mg Softgel] Previous Rx's Medication Instructions Recorded Aspirin 81 mg PO DAILY #90 tab 09/19/21 Pravastatin Sodium [Pravachol] 20 mg PO HS #90 tab 09/19/21 Allergies Allergy/AdvReac Type Severity Reaction Status Date / Time adhesive tape Allergy PEELS SKIN Verified 01/07/25 16:26 Penicillins Allergy Rash/Hives Verified 01/07/25 16:26 Review of Systems ROS Statement: Those systems with pertinent positive or pertinent negative responses have been documented in the HPI. ROS Other: All systems not noted in ROS Statement are negative. Constitutional: Denies: fever Eyes: Denies: eye pain ENT: Denies: ear pain Respiratory: Reports: dyspnea Cardiovascular: Reports: as per HPI, chest pain Neurological: Reports: paresthesias. Denies: headache Past Medical History Past Medical History: Cancer Additional Past Medical History / Comment(s): hx of polyps, hx kidney stones, chronic back pain, and hypothyroid, melanoma arm, abnormal echo 09/11, irregular heart rhythm History of Any Multi-Drug Resistant Organisms: None Reported Past Surgical History: Cholecystectomy, Hysterectomy, Orthopedic Surgery Additional Past Surgical History / Comment(s): sinus surgery, bilateral knee arthroscopy, lithotripsy Past Anesthesia/Blood Transfusion Reactions: No Reported Reaction Past Psychological History: No Psychological Hx Reported Smoking Status: Never smoker Past Alcohol Use History: Occasional Past Drug Use History: None Reported - Past Family History Father Family Medical History: Cancer Additional Family Medical History / Comment(s): colon,lung,prostate,alzheimer Mother Family Medical History: AFIB General Exam Limitations: no limitations General appearance: alert, in no apparent distress Head exam: Present: normocephalic Eye exam: Present: normal appearance Neck exam: Present: normal inspection Respiratory exam: Present: normal lung sounds bilaterally Cardiovascular Exam: Present: regular rate, normal rhythm, normal heart sounds Expanded Peripheral pulses: 2+: Radial (R), Radial (L), Posterior Tibialis (R), Posterior Tibialis (L) GI/Abdominal exam: Present: soft. Absent: tenderness Extremities exam: Present: normal inspection. Absent: pedal edema, calf tenderness Neurological exam: Present: alert Psychiatric exam: Present: normal affect, normal mood Skin exam: Present: normal color Course Vital Signs 01/07/25 01/07/25 01/07/25 16:23 18:15 19:18 Temperature 97.9 F Pulse Rate 44 L 69 77 Respiratory 16 14 16 Rate Blood Pressure 155/70 147/64 151/63 O2 Sat by Pulse 99 97 99 Oximetry EKG Findings - EKG Results: EKG: interpreted by ERMD (Frequent PVCs. Nonspecific ST-T), sinus rhythm, normal axis, normal QRS Medical Decision Making - Medical Decision Making Was pt. sent in by a medical professional or institution (, PA, HOME DEMONSTRATION AGENT, urgent care, hospital, or longterm...) When possible be specific @ -No Did you speak to anyone other than the patient for history (EMS, parent, family, police, friend...)? What history was obtained from this source @ -Family is present and was present during the event and help provide details of the event Did you review nursing and triage notes (agree or disagree)? Why? @ -I reviewed and agree with nursing and triage notes Were old charts reviewed (outside hosp., previous admission, EMS record, old EKG, old radiological studies, urgent care reports/EKG's, longterm records)? Report findings @ -No old charts were reviewed Differential Diagnosis (chest pain, altered mental status, abdominal pain women, abdominal pain men, vaginal bleeding, weakness, fever, dyspnea, syncope, headache, dizziness, GI bleed, back pain, seizure, CVA, palpatations, mental he alth, musculoskeletal)? @ -Differential Chest Pain: Stable Angina, Unstable Angina, STEMI, NSTEMI Aortic Dissection, Pneumothorax, Musculoskeletal, Esophageal Spasm GERD, Cholecystitis, Pancreatitis, Zoster, this is not meant to be an all-inclusive list. EKG interpreted by me (3pts min.). @ -As above X-rays interpreted by me (1pt min.). @ -Chest x-ray showed no acute process CT interpreted by me (1pt min.). @ -None done U/S interpreted by me (1pt. min.). @ -None done What testing was considered but not performed or refused? (CT, X-rays, U/S, labs)? Why? @ -None What meds were considered but not given or refused? Why? @ -None Did you discuss the management of the patient with other professionals (professionals i.e. , PA, HOME DEMONSTRATION AGENT, lab, RT, psych nurse, family welfare social work professor, teacher early childhood development, teacher, chief innovation officer, upper caser)? Give summary @ -Case was discussed with practitioner Mily Hernandez who will admit covering Dr. Martin Was smoking cessation discussed for >3mins.? @ -No Was critical care preformed (if so, how long)? @ -No Were there social determinants of health that impacted care today? How? (Homelessness, low income, unemployed, alcoholism, drug addiction, transportation, low edu. Level, literacy, decrease access to med. care, [facility], rehab)? @ -No Was there de-escalation of care discussed even if they declined (Discuss DNR or withdrawal of care, Hospice)? DNR status @ -No What co-morbidities impacted this encounter? (DM, HTN, Smoking, COPD, CAD, Cancer, CVA, ARF, Chemo, Hep., AIDS, mental health diagnosis, sleep apnea, morbid obesity)? @ -History of heart disease Was patient admitted / discharged? Hospital course, mention meds given and route, prescriptions, significant lab abnormalities, going to OR and other pertinent info. @ -Patient presents with complaints of chest discomfort and dyspnea. Initial evaluation unremarkable. Patient will be admitted with cardiac consult. Admission orders written. Undiagnosed new problem with uncertain prognosis? @ -No Drug Therapy requiring intensive monitoring for toxicity (Heparin, Nitro, Insulin, Cardizem)? @ -No Were any procedures done? @ -No Diagnosis/symptom? @ -Chest pain Acute, or Chronic, or Acute on Chronic? @ -Acute Uncomplicated (without systemic symptoms) or Complicated (systemic symptoms)? @ -Default Side effects of treatment? @ -No Exacerbation, Progression, or Severe Exacerbation? @ -No Poses a threat to life or bodily function? How? (Chest pain, USA, IA, pneumonia, PE, COPD, DKA, ARF, appy, cholecystitis, CVA, Diverticulitis, Homicidal, Suicidal, threat to staff... and all critical care pts) @ -Threat to cardiac function - Lab Data Result diagrams: 01/07/25 17:13 01/07/25 17:13 Lab Results 01/07/25 01/07/25 01/07/25 Range/Units 17:13 17:13 17:13 WBC 9.33 (4.50-10.00) 10*3/uL RBC 4.71 (4.10-5.20) 10*6/uL Hgb 14.5 (12.0-15.0) g/dL Hct 43.7 (37.2-46.3) % MCV 92.8 (80.0-97.0) fL MCH 30.8 (27.0-32.0) pg MCHC 33.2 (32.0-37.0) g/dL Plt Count 246 (140-440) 10*3/uL MPV 10.8 (9.5-12.2) fL Immature Gran % (Auto) 0.3 % Neutrophils % 51.7 % Lymphocytes % 35.7 % Monocytes % 9.2 % Eosinophils % 2.0 % Basophils % 1.1 % Immature Gran # 0.03 (0.00-0.04) 10*3/uL Neutrophils # 4.82 (1.80-7.70) 10*3/uL Lymphocytes # 3.33 (0.90-5.00) 10*3/uL Monocytes # 0.86 (0.20-1.00) 10*3/uL Eosinophils # 0.19 (0.04-0.35) 10*3/uL Basophils # 0.10 (0.00-0.10) 10*3/uL PT 10.5 (10.0-12.5) sec INR 0.9 (<1.2) APTT 22.6 (22.0-30.0) sec D-Dimer 0.46 (<0.60) mg/L FEU Sodium 140 (137-145) mmol/L Potassium 4.5 (3.5-5.1) mmol/L Chloride 107 (98-107) mmol/L Carbon Dioxide 25 (22-30) mmol/L Anion Gap 8 mmol/L BUN 24 H (7-17) mg/dL Creatinine 0.75 (0.52-1.04) mg/dL Est GFR (CKD-EPI)AfAm >90 (>60 ml/min/1.73 sqM) Est GFR (CKD-EPI)NonAf 79 (>60 ml/min/1.73 sqM) Glucose 99 (74-99) mg/dL Calcium 10.3 H (8.4-10.2) mg/dL Magnesium 2.1 (1.6-2.3) mg/dL Total Bilirubin 0.5 (0.2-1.3) mg/dL AST 32 (14-36) U/L ALT 23 (4-34) U/L Alkaline Phosphatase 94 (38-126) U/L Troponin I (0.000-0.034) ng/mL NT-Pro-B Natriuret Pep 250 pg/mL Total Protein 7.7 (6.3-8.2) g/dL Albumin 4.7 (3.5-5.0) g/dL 01/07/25 Range/Units 17:13 WBC (4.50-10.00) 10*3/uL RBC (4.10-5.20) 10*6/uL Hgb (12.0-15.0) g/dL Hct (37.2-46.3) % MCV (80.0-97.0) fL MCH (27.0-32.0) pg MCHC (32.0-37.0) g/dL Plt Count (140-440) 10*3/uL MPV (9.5-12.2) fL Immature Gran % (Auto) % Neutrophils % % Lymphocytes % % Monocytes % % Eosinophils % % Basophils % % Immature Gran # (0.00-0.04) 10*3/uL Neutrophils # (1.80-7.70) 10*3/uL Lymphocytes # (0.90-5.00) 10*3/uL Monocytes # (0.20-1.00) 10*3/uL Eosinophils # (0.04-0.35) 10*3/uL Basophils # (0.00-0.10) 10*3/uL PT (10.0-12.5) sec INR (<1.2) APTT (22.0-30.0) sec D-Dimer (<0.60) mg/L FEU Sodium (137-145) mmol/L Potassium (3.5-5.1) mmol/L Chloride (98-107) mmol/L Carbon Dioxide (22-30) mmol/L Anion Gap mmol/L BUN (7-17) mg/dL Creatinine (0.52-1.04) mg/dL Est GFR (CKD-EPI)AfAm (>60 ml/min/1.73 sqM) Est GFR (CKD-EPI)NonAf (>60 ml/min/1.73 sqM) Glucose (74-99) mg/dL Calcium (8.4-10.2) mg/dL Magnesium (1.6-2.3) mg/dL Total Bilirubin (0.2-1.3) mg/dL AST (14-36) U/L ALT (4-34) U/L Alkaline Phosphatase (38-126) U/L Troponin I <0.012 (0.000-0.034) ng/mL NT-Pro-B Natriuret Pep pg/mL Total Protein (6.3-8.2) g/dL Albumin (3.5-5.0) g/dL Disposition Clinical Impression: Chest pain Disposition: ADMITTED IP TO THIS HOSP Is patient prescribed a controlled substance at d/c from ED?: No Referrals: Shawnee Alcazar DO [REFERRING] - 1-2 days Time of Disposition: 19:34
[2025-01-07 17:22] LABS: Basophils % (A) 1.1 %; Eosinophils # (A) 0.19 10*3/uL (0.04-0.35); HCT 43.7 % (37.2-46.3); HGB 14.5 g/dL (12.0-15.0); Lymphocytes # (A) 3.33 10*3/uL (0.90-5.00); Lymphocytes % (A) 35.7 %; MCH 30.8 pg (27.0-32.0); MCHC 33.2 g/dL (32.0-37.0); MCV 92.8 fL (80.0-97.0); Mean Platelet Volume 10.8 fL (9.5-12.2); Monocytes # (A) 0.86 10*3/uL (0.20-1.00); Monocytes % (A) 9.2 %; Neutrophils # (A) 4.82 10*3/uL (1.80-7.70); Neutrophils % (A) 51.7 %; Platelet Count 246 10*3/uL (140-440); RBC 4.71 10*6/uL (4.10-5.20); RDW 13.4 % (11.5-14.5); WBC 9.33 10*3/uL (4.50-10.00)
--- NOTE | 2025-01-07 17:29 | XR ---
EXAMINATION TYPE: XR chest 2V DATE OF EXAM: 01/07/2025 5:19 PM COMPARISON: 09/16/2021 CLINICAL INDICATION: Female, 74 years old with history of Chest Pain: Shortness of breath TECHNIQUE: XR chest 2V views of the chest are obtained. FINDINGS: Scattered senescent parenchymal changes noted. Hyperinflation compatible with COPD. No evidence for infiltrate. No evidence for atelectasis. Heart size is stable. Mediastinal structures are stable and grossly unremarkable. No evidence for hilar prominence. Degenerative changes dorsal spine. IMPRESSION: 1. No evidence for acute pulmonary disease. [facility], , 01/07/2025 5:27 PM
[2025-01-07] MEDS: ASPIRIN 81 MG PO STA (17:40)
[2025-01-07 17:52] LABS: ALT 23 U/L (4-34); AST 32 U/L (14-36); African American GFR (CKD) >90 (>60 ml/min/1.73 sqM); Albumin 4.7 g/dL (3.5-5.0); Alkaline Phosphatase 94 U/L (38-126); Anion Gap 8 mmol/L; Blood Urea Nitrogen 24 mg/dL (7-17); Calcium 10.3 mg/dL (8.4-10.2); Carbon Dioxide 25 mmol/L (22-30); Chloride 107 mmol/L (98-107); Glucose 99 mg/dL (74-99); Magnesium 2.1 mg/dL (1.6-2.3); Non-African American GFR(CKD) 79 (>60 ml/min/1.73 sqM); Potassium 4.5 mmol/L (3.5-5.1); Sodium 140 mmol/L (137-145); Total Bilirubin 0.5 mg/dL (0.2-1.3); Total Protein 7.7 g/dL (6.3-8.2)
[2025-01-07 18:00] LABS: NT-Pro-B-Type Natriuretic Pept 250 pg/mL
[2025-01-07 18:05] LABS: INR 0.9 (<1.2); Partial Thromboplastin Time 22.6 sec (22.0-30.0); Prothrombin Time 10.5 sec (10.0-12.5)
[2025-01-07] MEDS: NITROGLYCERIN OINT 1 INCH/GM PACKET TOPICAL STA (18:13)
[2025-01-07] MEDS ORDERED: NITROGLYCERIN SL TABS 0.4 MG TAB SUBLINGUAL PRN (19:35)
[2025-01-07] MEDS: NITROGLYCERIN OINT 1 INCH/GM PACKET TOPICAL SCH (23:47)
[2025-01-08] MEDS: ASPIRIN 325 MG TAB PO SCH (08:13)
[2025-01-08 10:18] LABS: LDL Cholesterol,Calculated 177.4 mg/dL (0.0-131.0)
[2025-01-08] MEDS: ASPIRIN 81 MG PO SCH (14:42)
[2025-01-08 14:43] VITALS: BP 109/71; PULSE 61; RESP 16; TEMP 98.2
[2025-01-08] MEDS: EZETIMIBE 10 MG TAB PO SCH (15:15)
--- NOTE | 2025-01-08 21:07 | P.CRDCN ---
History of Present Illness Consult date: 01/08/25 History of present illness: HISTORY OF PRESENTING ILLNESS: 74-year-old presented to the hospital because of concerns of substernal chest pressure along with feeling of dizziness, lightheadedness. She reports that she was being a board game and sitting in a chair at dining table. When she stood up she felt dizzy and some foggy sensation in her head along with some heaviness in her neck. Along with this she was also complaining of some chest heaviness symptoms. On and off she is also been endorsing symptoms of some palpitation. She is also been noticing that her heart rate has been running low when she is checking it at home with a pulse oximeter BP on admission 127/71, heart rate 64, repeat 109/71, heart rate 61 Admission ECG showed sinus rhythm with frequent monomorphic PVCs in bigeminal fashion, heart rate 77 bpm Repeat ECG shows sinus rhythm with no significant PVCs. Labs shows hemoglobin 14, normal D-dimer, BUN 24, creatinine 0.7, magnesium 2.1, potassium 4.5, troponin x 3 negative, NT-proBNP 250, TG 105, TC 272, LDL 177, HDL 73 REVIEW OF SYSTEMS: 14 point review of system is negative except what is mentioned above in HPI. PHYSICAL EXAMINATION: Neck: Brisk carotid upstroke, no jugular venous distention. Lungs: Clear to auscultation. Heart: Regular rate and rhythm, S1-S2, , no murmur or rub. Abdomen: Soft nontender, positive bowel sounds. Extremities: No edema, intact distal pulses. Neuro: Alert, oritented, no focal deficits. Detailed neuro exam was not performed. ASSESSMENT: # Atypical chest pain, rule out of ACS # PVCs, # Mild dyslipidemia # Low pulse rate noticed on pulse oximeter likely from PVCs PLAN: She is not willing to take statin. Start Zetia 10 mg daily She is not willing to take aspirin, however I recommended it until she gets her cardiac testing done Recommend echocardiogram, Lexiscan nuclear stress and 14-day extended Holter monitor to quantify PVCs. She cannot walk on treadmill because of back osteoarthritis I recommended echo and a stress test and Holter monitor however patient is not willing to stay until Friday to get this test done. I have explained that the risks of not getting this test done and she is agreeable to accept this risk. She wants to follow-up with Dr. Vitaliy Elias. I have also given her my contact details if in case she needs to get an early or if she has any follow-up questions Kunal Cabezas MD, [facility], [facility] Thank you for allowing [facility] to participate in this patient's care. Feel free to reach out in case of any followup questions. Past Medical History Past Medical History: Cancer Additional Past Medical History / Comment(s): hx of polyps, hx kidney stones, chronic back pain, and hypothyroid, melanoma arm, abnormal echo 09/11, irregular heart rhythm History of Any Multi-Drug Resistant Organisms: None Reported Past Surgical History: Cholecystectomy, Hysterectomy, Orthopedic Surgery Additional Past Surgical History / Comment(s): sinus surgery, bilateral knee arthroscopy, lithotripsy Past Anesthesia/Blood Transfusion Reactions: No Reported Reaction Past Psychological History: No Psychological Hx Reported Additional Psychological History / Comment(s): years ago Smoking Status: Never smoker Past Alcohol Use History: Occasional Past Drug Use History: None Reported - Past Family History Father Family Medical History: Cancer, Supraventricular Tachycardia (SVT) Additional Family Medical History / Comment(s): colon,lung,prostate,alzheimer heart issues HTN Mother Family Medical History: AFIB, CVA/TIA Additional Family Medical History / Comment(s): HTN Brother(s) Family Medical History: CVA/TIA Additional Family Medical History / Comment(s): HTN Medications and Allergies Home Medications Medication Instructions Recorded Confirmed Type [place]-3 Fatty Acids/Fish Oil [Fish 1 cap PO DAILY 09/16/21 01/07/25 History Oil 1,000 mg Softgel] Calcium Carbonate [Calcium] 600 mg PO DAILY 01/07/25 01/07/25 History Magnesium 250 mg PO DAILY 01/07/25 01/07/25 History Thyroid [place] Supplement 1 cap PO BID 01/07/25 01/07/25 History Ezetimibe [Zetia] 10 mg PO DAILY #30 tab 01/08/25 Rx Allergies Allergy/AdvReac Type Severity Reaction Status Date / Time adhesive tape Allergy PEELS SKIN Verified 01/07/25 20:18 Penicillins Allergy Rash/Hives Verified 01/07/25 20:18 Physical Exam Vitals: Vital Signs Temp Pulse Pulse Resp BP BP Pulse Ox 01/08/25 14:43 98.2 F 61 16 109/71 96 01/08/25 08:02 97.6 F 67 15 145/83 99 01/08/25 07:58 97.9 F 66 18 132/76 97 01/08/25 03:15 97.7 F 64 16 127/71 97 01/08/25 01:00 65 01/07/25 22:39 97.4 F L 73 18 153/84 99 Intake and Output 01/08/25 01/08/25 01/08/25 06:59 14:59 22:59 Other: # Voids 2 Weight 83.915 kg Results 01/07/25 17:13 01/07/25 17:13 Cardiac Enzymes 01/07/25 Range/Units 23:01 Troponin I <0.012 (0.000-0.034) ng/mL Lipids 01/07/25 Range/Units 12:13 Triglycerides 105.00 (0.00-149.00) mg/dL Cholesterol 272.00 H (0.00-200.00) mg/dL HDL Cholesterol 73.60 H (40.00-60.00) mg/dL Cholesterol/HDL Ratio 3.70 Ratio Intake and Output 01/08/25 01/08/25 01/08/25 06:59 14:59 22:59 Other: # Voids 2 Weight 83.915 kg Patient Weight 01/09/25 06:59 Weight 83.915 kg 01/07/25 17:13 01/07/25 17:13
[2025-01-09 01:57] LABS: NT-Pro-B-Type Natriuretic Pept 275 pg/mL (0-125)
[2025-01-09 02:01] LABS: Magnesium 2.1 mg/dL (1.5-2.4)
== END 2025-01-08 16:17 | disposition home or self-care (01) ==
LOC: EC 16:00 → 6NMEDSUR 19:36
PROVIDERS: ADMIT Internal Medicine; ATTEND Internal Medicine
DX: R07.89 Other chest pain (principal); I49.3 Ventricular premature depolarization; E78.5 Hyperlipidemia, unspecified; E03.9 Hypothyroidism, unspecified; Z79.82 Long term (current) use of aspirin; Z79.899 Other long term (current) drug therapy; Z85.820 Personal history of malignant melanoma of skin
CPT/HCPCS: 99285; 36415; 93005 ×2; 85379; 83880 ×2; 80061; 80053; 84443; 83735 ×2; 84484; 85025; 85610; 85730; 83036; 71046; G0378 ×2

== ENCOUNTER → 2025-02-14 | Outpatient (CLI) | payer MEDICARE ==
[~2025-02-14] MED LIST changes: -LACTATED RINGERS 1,000 ML IV SCH; +REGADENOSON 0.4 MG/5 ML SYRINGE IV PRN
--- NOTE | 2025-02-14 13:14 | NM ---
EXAMINATION TYPE: NM stress lexiscan cardiolite DATE OF EXAM: 02/14/2025 COMPARISON: NONE CLINICAL INDICATION: Female, 74 years old with history of R07.89 CHEST PAIN I49.9 CARDIAC ARRHYTHMIA; TECHNIQUE: After the intravenous administration of 9.54 mCi Tc 99m Sestamibi - Cardiolite resting SP ECT images acquired 45 minutes post injection. The patient received 0.4mg Lexiscan, 24.9 mCi Tc 99m Sestamibi - Stress images obtained [address] injection FINDINGS: Review of stress and rest SPECT images demonstrates moderate-sized area of irreversibility involving the anterior lateral apical anteroseptal wall. Stress-induced ischemia is not excluded. There also in terposed areas of fixed defect. Gated analysis shows normal wall motion with an estimated left ventri cular ejection fraction of 48 %. IMPRESSION: moderate-sized area of irreversibility involving the anterior lateral apical anteroseptal wall. Stres s-induced ischemia is not excluded. There also interposed areas of fixed defect. [facility], , 02/14/2025 1:11 PM
--- NOTE | 2025-02-15 08:04 | CA ---
Lexiscan Nuclear Stress Test Report Name: Lennie Saldaña Exam Date: 02/14/2025 10:34 Exam Location: [place] Stress Ht (in): 69 Wt (lb): 185 BSA: 2.00 Ordering Phys: Elan Alcazar MD Referring Phys: Marjorie Pickering Technologist: LINDSAY Age: 74 Gender: F : 1950 Procedure CPT: Indications: R07.89 CHEST PAIN I49.9 CARDIAC ARRHYTHMIA ICD-10 Codes: Patient History: Chest pain, shortness of breath and palpitations. Medications: Meds past 24 hrs: Pretest Chest Pain: STRESS TEST Lexiscan Protocol Exercise Duration (min:sec): 02:[address] Depressions (mm): Angina Score: King Score: Resting HR (bpm): 82 Peak HR (bpm): 110 Resting BP (mmHg): 146 / 89 Peak BP (mmHg): 143 / 99 MPHR: 146 Target HR: 124 % MPHR: 75 METS: 1.0 Total Dose: Peak Dose: Atropine: Double Product: 93029 BP Response: Stress Termination: Infusion complete Stress Symptoms: No chest pain or symptoms Stress Summary: ECG ANALYSIS Resting ECG: Sinus rhythm. Normal conduction. Ventricular premature contraction. Nonspecific ST-T abnormality. Stress ECG: No ECG changes from baseline with Lexiscan infusion. CONCLUSIONS No ECG evidence of ischemia with Lexiscan infusion. Nuclear test results to follow. Dr. Leelee Avila MD (Electronically Signed) Final Date: 15 February 2025 08:04
== END | disposition home or self-care (01) ==
LOC: RADNMMAIN 01-31 08:16
PROVIDERS: ATTEND Family Medicine
DX: I49.9 Cardiac arrhythmia, unspecified (principal)
CPT/HCPCS: 93017; 78452; A9500; J2785